=== PATIENT | female | born 1955 | race Caucasian/White ===

== ENCOUNTER 2020-09-14 08:39 | Outpatient (CLI) | payer MEDICARE, SELFPAY ==
--- NOTE | 2020-09-14 08:49 | MM_ITS ---
WS: [id number] Exam: [id number] Date/Time of Exam: 09/14/2020 8:50 AM Reason For Exam: SCREENING VIEWS: MLO and CC views both breasts. Comparison made with prior exam of 05/27/2016. Findings: There was no sign of mass, architectural distortion or suspicious calcification in either breast. Sc attered fibroglandular densities MM/[place] [id number] Impression: BI-RADS: 2-Benign FOLLOW-UP: 1 Year Follow-up This mammogram was also analyzed by the Computer Aided Detection System R2 Imag e Occupational Health Nurse Supervisor.
== END 2020-09-14 08:40 | disposition home or self-care (01) ==
PROVIDERS: PCP Electrodiagnostic Medicine; Visit Provider Electrodiagnostic Medicine
DX: Z12.31 Encounter for screening mammogram for malignant neoplasm of breast (principal)
CPT/HCPCS: 77067

== ENCOUNTER 2021-04-17 13:16 | Outpatient (CLI) | payer MEDICARE, SELFPAY ==
--- NOTE | 2021-04-17 13:27 | MM_ITS ---
WS: [id number] DIAGNOSTIC RIGHT DIGITAL MAMMOGRAM WITH CAD RIGHT breast ultrasound, limited HISTORY: RIGHT BREAST MASS COMPARISON: 09/14/2020, 06/07/2019, 05/13/2018 and 05/27/2016 Technique: CC, MLO and ML views. Spot compression views RIGHT MLO and cc. Breast composition: There are scattered areas of fibroglandular density. Palpable marker corresponds to a rounded nodule of 8 mm which has increased in density since the prior examination. The fatty hi lum is no longer apparent. This is a well circumscribed nodule and thought to be a lymph node on prio r studies. RIGHT breast ultrasound, limited. Palpable area corresponds to a lymph node that has been previously described at 10:00, 6 cm from the nipple. This lymph node has increased in size now measuring 9 x 6.9 mm. There is very slight displace ment of the normal central fatty hilum. There is asymmetric thickening of the cortex. There is also s ome mild central increased vascularity. MM/[place] [id number] IMPRESSION: BI-RADS: 4-Suspicious Finding-Biopsy Should Be Considered FOLLOW UP: Biopsy Recommended Recommend ultrasound-guided biopsy of the RIGHT breast mass at 10:00. This does appear to be a lymph node but has increased slightly in size and now there is asymmetry of the cortex and displacement of the fatty hilum. May be a reactive lymph node. Early neoplastic disease should be considered. Notified Haseeb Reed DO at 04/17/2021 3:32 PM. Discussed with Promise.
== END 2021-04-17 13:17 | disposition home or self-care (01) ==
LOC: RADSHAW 13:21
PROVIDERS: PCP Electrodiagnostic Medicine; Visit Provider Electrodiagnostic Medicine
DX: N63.11 Unspecified lump in the right breast, upper outer quadrant (principal)
CPT/HCPCS: 76642; 77065

== ENCOUNTER 2021-05-01 13:10 | Outpatient (CLI) | payer MEDICARE, SELFPAY ==
--- NOTE | 2021-05-01 13:14 | US_ITS ---
WS: [id number] ULTRASOUND-GUIDED RIGHT BREAST BIOPSY HISTORY: R BREAST MASS @ 10:00 COMPARISON: 04/17/2021 and 05/13/2018 Procedure, risks and complications are explained to the patient. Medications are reviewed. Consent is obtained. The mass in the RIGHT breast is localized with ultrasound. Skin is cleansed with ChloraPrep and anest hetized with 1% buffered lidocaine. Small dermatome is made. Under sterile conditions mass is biopsie d with a 14-gauge Achieve needle. Multiple core biopsies are performed. Material placed in formalin a nd sent to pathology for review. No complications encountered. Breast tissue marker ([employer] ultrasound enhanced ribbon): None. Patient left the radiology suite with no complications. Patient is instructed to [place] [facility] [place] [facility] with any concerns. US/[place] [id number] IMPRESSION: 1. Uncomplicated core needle biopsy RIGHT breast mass which by imaging is prob ably a lymph node. PATHOLOGY: Benign lymphoid tissue. No malignancy. RECOMMENDATION: Return to annual screening mammography.
[2021-05-06 05:49] LABS: Miscellaneous Test See Scanned Lab Rpt
== END 2021-05-01 13:11 | disposition home or self-care (01) ==
PROVIDERS: PCP Electrodiagnostic Medicine; Visit Provider Electrodiagnostic Medicine
DX: R92.8 Other abnormal and inconclusive findings on diagnostic imaging of breast (principal); N63.11 Unspecified lump in the right breast, upper outer quadrant
CPT/HCPCS: 19083; 88271; 88275; 88305

== ENCOUNTER 2021-05-21 08:05 | Outpatient (CLI) | payer MEDICARE, SELFPAY ==
--- NOTE | 2021-05-21 08:14 | XR_ITS ---
WS: [id number] XR lumbar spine 2-3V* [id number] REASON FOR EXAM: CHRONIC LUMBAR BACK PAIN FINDINGS: No significant vertebral body compression deformity. Mild narrowing of the intervertebral disc spaces L3-S1. No spondylolisthesis or spondylolysis identified. Mild degenerative changes in the facet joints L3-S1 . XR/XR lumbar spine 2-3V* [id number] IMPRESSION: Changes of degenerative spondylosis as above.
== END 2021-05-21 08:06 | disposition home or self-care (01) ==
PROVIDERS: PCP Electrodiagnostic Medicine; Visit Provider Electrodiagnostic Medicine
DX: M54.5 Low back pain (principal)
CPT/HCPCS: 72100

== ENCOUNTER 2022-03-18 18:23 | Inpatient (IN) | payer MEDICARE, SELFPAY ==
--- NOTE | 2022-03-18 18:26 | ECG_ITS ---
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 Measurements Intervals [place] Rate: 88 P: 65 ID: [id number] QRS: 46 QRSD: 131 T: 4 QT: 390 QTc: 473 Interpretive Statements SINUS RHYTHM RIGHT BUNDLE BRANCH BLOCK [120+ ms QRS DURATION, UPRIGHT V1, 40+ ms S IN I/aVL/V4/V5/V6] MODERATE T-WAVE ABNORMALITY, CONSIDER LATERAL ISCHEMIA [-0.1+ mV T-WAVE IN I/aVL/V5/V6] Compared to ECG 09/16/2018 07:35:04 T-wave abnormality now present Possible ischemia now present Short ID interval no longer present Electronically Signed On 03-19-2022 22:03:27 CDT by Cassidy Chambers M.D. [email or web address]
[2022-03-18 18:27] VITALS: BP 128/72; PULSE 110; RESP 24; TEMP 37; O2SAT 97; BMI 23.6
[2022-03-18] MEDS: ondansetron 2 mg/ML SDV 2 mL 4 MG IVP ×2 (18:47→22:23)
[2022-03-18] MEDS: sodium chloride 0.9% 1,000 ML 999 ML IV (18:48)
--- NOTE | 2022-03-18 18:51 | ED_ITS ---
HPI - Nausea/Vomiting/Diarrhea General: Chief complaint: Nausea/Vomiting/Diarrhea Stated complaint: n/v/passing out Time Seen by Provider: 03/18/22 18:32 Source: patient Mode of arrival: ambulatory Limitations: no limitations History of Present Illness: 66-year-old female who states that she been having some GI distress throughout the day states she gets this at this time so roughly 2 to 3 hours ago she drank some activated charcoal states that over the last hour she had severe nausea and vomiting. She has had multiple episodes along with some diarrhea and has had a couple episodes of syncope while vomiting. She states she has not been able to tolerate any p.o. she denies any abdominal pain denies any fever denies any worsening improving factors. She denies any chest pain. Associated nausea: Yes Associated symtoms: Reports nausea and syncope; Denies dysuria or headache(s) Review of Systems Const: Denies: fever(s), chills, body aches or change in appetite Eyes: Denies: blurry vision or eye discomfort ENMT: Denies: throat pain or dental pain Card: Reports: syncope Resp: Denies: dyspnea GI: Reports: nausea and vomiting : Denies: dysuria Musc: Denies: neck pain or back pain Skin/Breast: Denies: rash Neuro: Denies: headache(s) Psych: Denies: depression Manuel/Lymph: Denies: easy bruising All/Imm: Denies: urticaria PFSH ED PFSH: Social History Substance/Drug Use: never Physical Exam Const: COMMON NORMALS: no acute distress, patient oriented x3 and healthy appearing HENMT: COMMON NORMALS: normocephalic and atraumatic HEAD & SCALP: normocephalic and atraumatic Eye: COMMON NORMALS: Equal, round and reactive pupils present and EOMs intact bilaterally PUPIL: Yes Equal, round and reactive pupils present Neck/C-Spine: COMMON NORMALS: full ROM and supple Chest: COMMONS NORMALS: normal inspection of the chest and normal palpation of entire chest wall Resp: COMMON NORMALS: normal respiratory effort, No retractions, No use of accessory muscles and clear to auscultation bilaterally AUSCULTATION: clear to auscultation bilaterally Cardio: COMMON NORMALS: regular rate, regular rhythm and No murmurs present (Cardio) RATE: regular rate RHYTHM: regular rhythm GI: COMMON NORMALS: Normal to inspection, nondistended, normoactive bowel sounds present, Soft to palpation, non-tender and no masses PALPATION: Yes Soft to palpation Extremity: COMMON NORMALS: normal to inspection and full ROM Neuro: COMMON NORMALS: patient oriented x3, moves all extremities and no focal motor deficits Psych: COMMON NORMALS: mental status grossly normal, Normal thought process present and cooperative THOUGHT PROCESS: Normal thought process present Skin: COMMON NORMALS: no rashes or lesions noted and no wounds GENERAL SKIN EXAM: no rashes or lesions noted Course Vital Signs: Vital signs: Vital Signs Temperature 98.6 F 03/18/22 18:27 Pulse Rate 110 H 03/18/22 18:27 Respiratory Rate 18 03/18/22 22:23 Blood Pressure 128/72 03/18/22 18:27 Pulse Oximetry 99 03/18/22 22:23 MDM - Nausea/Vomiting/Diarrhea Medical Decision Making Patient presents here with nausea vomiting has had intractable vomiting here. Given multiple dose of Zofran she is still felt unwell did a CT of her abdomen pelvis it did show a right lower and middle lobe pneumonia discussed at length with patient she states she feels like she cannot tolerate oral antibiotics will admit for observation for her vomiting along with her pneumonia she has been stable while in the ER. Lab Data : 03/18/22 18:50 03/18/22 18:50 Radiology Impressions Chest X-Ray 03/18/22 22:11 IMPRESSION: Stable COPD . Abdomen/Pelvis CT 03/18/22 22:14 IMPRESSION: 1. Mild right middle lobe and right lower lobe pneumonia. 2. No acute abdominal findings. Laboratory Results WBC 9.0 10^3/uL (4.0-10.0) 03/18/22 18:50 RBC 4.69 10^6/uL (4.1-5.3) 03/18/22 18:50 Hgb 14.6 g/dL (11.5-15.3) 03/18/22 18:50 Hct 42.3 % (37.0-47.0) 03/18/22 18:50 MCV 90.2 fl (81-99) 03/18/22 18:50 MCH 31.1 pg (28.0-34.0) 03/18/22 18:50 MCHC 34.5 g/dL (30.0-36.0) 03/18/22 18:50 RDW 12.5 % (12.1-15.1) 03/18/22 18:50 Plt Count 290 10^3/cmm (130-400) 03/18/22 18:50 MPV 10.2 fL (7.4-10.4) 03/18/22 18:50 Neut % (Auto) 81.9 % 03/18/22 18:50 Lymph % (Auto) 13.3 % 03/18/22 18:50 [place] % (Auto) 3.7 % 03/18/22 18:50 Eos % (Auto) 0.6 % 03/18/22 18:50 Baso % (Auto) 0.3 % 03/18/22 18:50 Neut # (Auto) 7.33 10^3/uL (1.8-7.7) 03/18/22 18:50 Lymph # (Auto) 1.2 10^3/uL (0.8-4.8) 03/18/22 18:50 [place] # (Auto) 0.3 10^3/uL (0.2-0.9) 03/18/22 18:50 Eos # (Auto) 0.1 10^3/uL (0.0-0.8) 03/18/22 18:50 Baso # (Auto) 0.0 10^3/uL (0.0-0.1) 03/18/22 18:50 Nucleated RBC % (auto) 0 % 03/18/22 18:50 Nucleated RBCs # 0.0 /100WBC 03/18/22 18:50 Sodium 136 mmol/L (136-145) 03/18/22 18:50 Potassium 3.7 mmol/L (3.5-5.1) 03/18/22 18:50 Chloride 98 mmol/L (98-107) 03/18/22 18:50 Carbon Dioxide 20 mmol/L (22-29) L 03/18/22 18:50 Anion Gap 21.7 (5-19) H 03/18/22 18:50 BUN 13 mg/dL (8-23) 03/18/22 18:50 Creatinine 0.6 mg/dL (0.5-0.9) 03/18/22 18:50 GFR Calculation 100.0 mL/min (90-130) 03/18/22 18:50 Glucose 161 mg/dL (65-115) H 03/18/22 18:50 Calculated Osmolality 286 mOsm/kg (285-295) 03/18/22 18:50 Calcium 9.7 mg/dL (8.5-10.5) 03/18/22 18:50 Total Bilirubin 0.5 mg/dL (0.15-1.2) 03/18/22 18:50 AST 19 U/L (0-32) 03/18/22 18:50 ALT 22 U/L (0-33) 03/18/22 18:50 Alkaline Phosphatase 112 IU/L (35-105) H 03/18/22 18:50 Troponin T Gen 5 ng/L 7 ng/L (0-10) 03/18/22 22:39 Troponin T Baseline 7 ng/L (0-10) 03/18/22 18:50 Total Protein 7.8 g/dL (6.6-8.7) 03/18/22 18:50 Albumin 4.5 g/dL (3.5-5.2) 03/18/22 18:50 Globulin 3.3 g/dL (1.3-4.6) 03/18/22 18:50 Lipase 15 U/L (13-60) 03/18/22 18:50 Urine Color Colorless (Yellow) 03/18/22 21:08 Urine Appearance Clear (CLEAR) 03/18/22 21:08 Urine pH 7 (5-7) 03/18/22 21:08 Ur Specific [place] 1.010 (1.005-1.030) 03/18/22 21:08 Urine Protein Neg (Negative) 03/18/22 21:08 Urine Glucose (UA) Norm (Normal) 03/18/22 21:08 Urine Ketones 1+ (Negative) H 03/18/22 21:08 Urine Blood Neg (Negative) 03/18/22 21:08 Urine Nitrate Negative (Negative) 03/18/22 21:08 Urine Bilirubin Neg (Negative) 03/18/22 21:08 Urine Urobilinogen Norm mg/dL (Negative) 03/18/22 21:08 Ur Leukocyte Esterase Negative (Negative) 03/18/22 21:08 EKG Data EKG 1: I personally reviewed and interpreted this EKG as follows: EKG interpretation date: 03/18/22 EKG interpretation time: 18:56 Interpretation: nsr hr [address] or t wave abnormalities qrs 131 qtc 436 rbbb Discharge Plan Discharge Prescriptions: No Action zinc acetate 25 mg (zinc) Capsule 25 mg PO DAILY 0RF Vitamin C 100 mg Tablet 100 mg PO DAILY 0RF Vitamin B-100 Complex Tablet 1 tab PO DAILY 0RF fluticasone propionate 50 mcg/actuation [place],Suspension 1 spray INTRANASAL DAILY PRN (Reason: Allergy Symptoms) 0RF Rx Instructions: administer into each nostril Vitamin D3 10 mcg (400 unit) Tablet 10 mcg PO DAILY 0RF diazepam 5 mg Tablet 5 mg PO DAILY PRN (Reason: Sleep) 0RF Probiotic 15 billion cell Capsule 1 cap PO DAILY 0RF Referrals: Haseeb Reed DO [Primary Care Provider] - Coding Level of Care Code ED Back Tender Insulation Board for Chg Fwd Exam Comprehensive
[2022-03-18 18:55] LABS: Basophils % 0.3 %; Eosinophils # 0.1 10^3/uL (0.0-0.8); Eosinophils % 0.6 %; Hematocrit 42.3 % (37.0-47.0); Hemoglobin 14.6 g/dL (11.5-15.3); Lymphocytes # 1.2 10^3/uL (0.8-4.8); Lymphocytes % 13.3 %; Mean Corpuscular HGB Conc 34.5 g/dL (30.0-36.0); Mean Corpuscular Hemoglobin 31.1 pg (28.0-34.0); Mean Corpuscular Volume 90.2 fl (81-99); Mean Platelet Volume 10.2 fL (7.4-10.4); Monocytes # 0.3 10^3/uL (0.2-0.9); Monocytes % 3.7 %; Neutrophils # 7.33 10^3/uL (1.8-7.7); Neutrophils % 81.9 %; Nucleated Red Blood Cells % 0 %; Platelet Count 290 10^3/cmm (130-400); Red Blood Count 4.69 10^6/uL (4.1-5.3); Red Cell Distribution Width 12.5 % (12.1-15.1)
--- NOTE | 2022-03-18 18:59 | PC.NURSE ---
PT PLACED ON CONTINUOUS SPO2, NIBP, AND CM.
--- NOTE | 2022-03-18 19:03 | PC.NURSE ---
REPORT GIVEN TO [facility] ASSUMED CARE.
[2022-03-18 19:13] LABS: Alanine Aminotransferase 22 U/L (0-33); Albumin Level 4.5 g/dL (3.5-5.2); Alkaline Phosphatase 112 IU/L (35-105); Anion Gap 21.7 (5-19); Aspartate Amino Transferase 19 U/L (0-32); Blood Urea Nitrogen 13 mg/dL (8-23); Calcium 9.7 mg/dL (8.5-10.5); Carbon Dioxide 20 mmol/L (22-29); Chloride 98 mmol/L (98-107); Globulin 3.3 g/dL (1.3-4.6); Glucose 161 mg/dL (65-115); Lipase 15 U/L (13-60); Osmolality Calculated 286 mOsm/kg (285-295); Potassium 3.7 mmol/L (3.5-5.1); Sodium 136 mmol/L (136-145); Total Bilirubin 0.5 mg/dL (0.15-1.2); Total Protein 7.8 g/dL (6.6-8.7)
[2022-03-18 21:14] LABS: Add Urine Microscopic? NO; Charge for UA Resulting for Rev
[2022-03-18 21:18] LABS: Bilirubin Urine Neg (Negative); Blood Urine Neg (Negative); Glucose Urine UA Norm (Normal); Ketones Urine 1+ (Negative); Leukocyte Esterase Urine Negative (Negative); Nitrate Urine Negative (Negative); Protein Urine Neg (Negative); Urine Appearance Clear (CLEAR); Urine Color Colorless (Yellow); Urobilinogen Urine Norm (Negative); pH Urine 7 (5-7)
--- NOTE | 2022-03-18 22:11 | XRR_ITS ---
PROCEDURE INFORMATION: Exam: XR Chest Exam date and time: 03/18/2022 10:42 PM Age: 66 years old Clinical indication: Chest wall pain; Additional info: Abd pain TECHNIQUE: Imaging protocol: XR of the chest. Views: 1 view. COMPARISON: CR Chest 1 [place] [id number] 09/16/2018 1:58 AM FINDINGS: Lungs: Stable COPD . Pleural spaces: Unremarkable. No pleural effusion. No pneumothorax. Heart/Mediastinum: Unremarkable. No cardiomegaly. Bones/joints: Unremarkable. XR/XR chest 1V portable [id number] IMPRESSION: Stable COPD .
--- NOTE | 2022-03-18 22:14 | CTR_ITS ---
PROCEDURE INFORMATION: Exam: CT Abdomen And Pelvis Without Contrast Exam date and time: 03/18/2022 10:27 PM Age: 66 years old Clinical indication: Nausea and vomiting; Prior surgery; Surgery type: Appy; Patient HX: Onset of n/v/d starting today. ; Additional info: Abd pain TECHNIQUE: Imaging protocol: Computed tomography of the abdomen and pelvis without contrast. Radiation optimization: All CT scans at this facility use at least one of these dose optimization techniques: automated exposure control; mA and/or kV adjustment per patient size (includes targeted exams where dose is matched to clinical indication); or iterative reconstruction. COMPARISON: CT abdomen pelvis w con* [id number] 09/16/2018 2:41 AM RADIATION DOSE METRICS: Total DLP (mGy-cm): 1431.31 FINDINGS: Lungs: Mild right middle lobe and right lower lobe pneumonia. Liver: Normal. No mass. Gallbladder and bile ducts: Normal. No calcified stones. No ductal dilation. Pancreas: Normal. No ductal dilation. Spleen: Normal. No splenomegaly. Adrenal glands: Normal. No mass. Kidneys and ureters: Normal. No hydronephrosis. Stomach and bowel: Unremarkable. No obstruction. No mucosal thickening. Appendix: No evidence of appendicitis. Intraperitoneal space: Unremarkable. No free air. No significant fluid collection. Vasculature: One or more calcified pelvic phleboliths. Lymph nodes: Unremarkable. No enlarged lymph nodes. Urinary bladder: Unremarkable as visualized. Reproductive: Stable hysterectomy. Bones/joints: Unremarkable. No acute fracture. Soft tissues: Unremarkable. CT/CT abdomen pelvis con [id number] IMPRESSION: 1. Mild right middle lobe and right lower lobe pneumonia. 2. No acute abdominal findings.
[2022-03-18 22:23] VITALS: RESP 18; O2SAT 99
[2022-03-18] MEDS: morphine 4 mg/mL SDV 1 mL IVP (22:23)
[2022-03-18 23:11] LABS: Troponin(5th) Baseline 7 ng/L (0-10)
[2022-03-18 23:13] LABS: Troponin T (5th) Once 7 ng/L (0-10)
--- NOTE | 2022-03-18 23:42 | PM.HP ---
Providers/Chief Complaint Primary Care Provider: Haseeb Reed DO Chief Complaint: n/v/passing out History of Present Illness The patient is a [age]-year-old female who presents with chief complaint of nausea and diarrhea.? She indicates that she initially started feeling unwell possibly 40 hours prior to hospitalization.? She has had accompanying rigors, vomiting, back pain, diarrhea.? She denies fever, cough, wheeze, abdominal pain, chest pain, dyspnea.? She denies any sick contacts and she denies any other close contacts experience and the same symptoms.? She indicates that she has not used antibiotics with the last 6 months.? She denies melena and hematochezia.? She states that she took activated charcoal at home without improvement in her symptoms.? He denies diplopia, blurry vision, dysphasia, dysphagia, paresthesia/anesthesia/myasthenia of any part of her body.? She presents for further evaluation Review of Systems General: Reports: 10 or more systems reviewed and unremarkable except in HPI and below Medications/Allergies Home Medications Medication Instructions Recorded Confirmed Last Taken Type Lactobacillus acidophilus and 1 cap PO DAILY 03/18/22 03/18/22 Unknown History rhamnosus 15 billion cell capsule (Probiotic) ascorbic acid (vitamin C) 100 mg 100 mg PO DAILY 03/18/22 03/18/22 Unknown History tablet (Vitamin C) cholecalciferol (vitamin D3) 10 10 mcg PO DAILY 03/18/22 03/18/22 Unknown History mcg (400 unit) tablet (Vitamin D3) diazepam 5 mg tablet 5 mg PO DAILY PRN 03/18/22 03/18/22 03/14/22 History fluticasone propionate 50 1 spray INTRANASAL DAILY PRN 03/18/22 03/18/22 Unknown History mcg/actuation nasal spray,suspension vitamin B complex 1 tab PO DAILY 03/18/22 03/18/22 Unknown History zinc acetate 25 mg (zinc) capsule 25 mg PO DAILY 03/18/22 03/18/22 Unknown History Allergies Allergy/AdvReac Type Severity Reaction Status Date / Time No Known Allergies Allergy Verified 03/18/22 21:14 PFSH Acute PFSH: Social History Substance/Drug Use: never Vitals/I&O/Wt Last Vital Signs Temp 98.6 F 03/18/22 18:27 Pulse 110 H 03/18/22 18:27 Resp 18 03/18/22 22:23 BP 128/72 03/18/22 18:27 Pulse Ox 99 03/18/22 22:23 Weight last 48 hrs Weight 72.575 kg Physical Exam Narrative: General: -Alert -No acute distress -No dyspnea -No tachypnea Head: -Atraumatic -Normocephalic Eyes: -Pupils equally round and reactive to light and accommodation -Extraocular muscles intact Neurological: -Cranial nerves II-XII intact Neck: -No jugular venous distention -No thyromegaly -No cervical lymphadenopathy Heart: -Regular rate -Regular rhythm -No murmurs -No gallops -No rubs Lungs: -No wheeze -No rhonchi -No rales ? Abdomen: -Normal bowel sounds in all four quadrants -No rebound -No guarding -No tenderness Extremities: -2/4 pulse in all four extremities -No clubbing -No cyanosis -No edema -No calf tenderness present bilaterally -Negative Nallely?s sign bilaterally Musculoskeletal: -5/5 bilateral upper extremity strength -5/5 bilateral lower extremity strength -Sensorium of bilateral upper extremities are equal and intact -Sensorium of bilateral lower extremities are equal and intact ? Additional Details / Additional Findings / Exceptions / Miscellaneous: Data : 03/18/22 18:50 03/18/22 18:50 A&P Assessment and plan (1) Nausea: Status: Acute Plan nausea with symptoms of gastroenteritis. CT of the abdomen and pelvis unremarkable for acute process.Uncertain etiology at this time. I will low index of suspicion for a neurological event being the inciting reason. This may possibly second be secondary to her pneumonia. Care and antiemetics. IV normal saline 100 ML's per hour. if symptoms persist, we may check stool C. difficile, stool WBC, stool culture, and stool ova and parasites and perhaps change her antibiotics to once that may cover gastrointestinal avelino, i.e. Cipro and Flagyl pneumonia. Azithromycin 500 Mill grams IV daily plus Rocephin 1 g IV daily plus IV normal saline at 100 ML's per hour Seasonal allergies Anxiety COPD, per radiography DVT Proflex is. Lovenox 40 Mill grams subcu tensely daily Attestations Medical Necessity Statement*: the patient's anticipated length of stay is less than 40 hours for treatment of her pneumonia as well as her nausea Coding Level of Care Code Acute Supervisor [employer]aning [employer] for [facility] Fwd Diagnoses Nausea R11.0
[2022-03-18] MEDS: cefTRIAXone 1,000 MG in sodium chloride 0.9% (plus) 50 ML 100 MG IV (23:45)
[2022-03-18] MEDS: azithromycin 500 MG in sodium chloride 0.9% 250 ML 250 MG IV (23:48)
[2022-03-19] VITALS (9 sets, daily range): BP systolic 111–151; BP diastolic 65–78; PULSE 65–105; RESP 16–22; TEMP 36.3–38; O2SAT 92–98
--- NOTE | 2022-03-19 00:14 | ECG_ITS ---
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 Measurements Intervals [place] Rate: 100 P: 74 AL: 172 QRS: 33 QRSD: 139 T: -50 QT: 343 QTc: 443 Interpretive Statements SINUS TACHYCARDIA RIGHT BUNDLE BRANCH BLOCK [120+ ms QRS DURATION, UPRIGHT V1, 40+ ms S IN I/aVL/V4/V5/V6] MODERATE T-WAVE ABNORMALITY, CONSIDER LATERAL ISCHEMIA [-0.1+ mV T-WAVE IN I/aVL/V5/V6] MODERATE T-WAVE ABNORMALITY, CONSIDER INFERIOR ISCHEMIA [-0.1+ mV T-WAVE IN II/aVF] Compared to ECG 03/18/2022 18:56:34 Sinus rhythm no longer present T-wave abnormality still present Possible ischemia still present Electronically Signed On 03-19-2022 22:09:58 CDT by Cassidy Chambers M.D. [id number]
[2022-03-19] MEDS: enoxaparin 40 mg/0.4 mL Syringe SUBCUT (01:24)
[2022-03-19] MEDS: sodium chloride 0.9% 1,000 ML 100 ML IV ×2 (01:24→11:08)
[2022-03-19 03:07] LABS: Troponin 5 6HR 6.93 ng/L (0-10)
[2022-03-19 03:18] LABS: Troponin 5 6HR Delta -0.07 ng/L (0-12)
--- NOTE | 2022-03-19 04:14 | ECG_ITS ---
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 Measurements Intervals [place] Rate: 88 P: 75 NV: 152 QRS: 31 QRSD: 138 T: -34 QT: 349 QTc: 423 Interpretive Statements SINUS RHYTHM WITH OCCASIONAL SUPRAVENTRICULAR PREMATURE COMPLEXES RIGHT BUNDLE BRANCH BLOCK [120+ ms QRS DURATION, UPRIGHT V1, 40+ ms S IN I/aVL/V4/V5/V6] MODERATE T-WAVE ABNORMALITY, CONSIDER LATERAL ISCHEMIA [-0.1+ mV T-WAVE IN I/aVL/V5/V6] MODERATE T-WAVE ABNORMALITY, CONSIDER INFERIOR ISCHEMIA [-0.1+ mV T-WAVE IN II/aVF] Compared to ECG 03/19/2022 02:25:28 Sinus tachycardia no longer present T-wave abnormality still present Possible ischemia still present Electronically Signed On 03-19-2022 22:09:48 CDT by Cassidy Chambers M.D. [id number]
--- NOTE | 2022-03-19 08:46 | PM.PN ---
Subjective Subjective: Patient fevered overnight to 100.4. Patient reports persistent nausea. She reports the only thing she has been able to eat since being at the hospital is a Jell-O. She endorses low back pain. Reports cough. Reports fever improved. Denies chills. Denies abdominal pain. Denies further episodes of diarrhea or emesis since admission. Denies chest pain. Medications: Reviewed: Yes Vitals/I&O/Wt Last Vital Signs Temp 99.0 F 03/19/22 08:00 Pulse 88 03/19/22 08:00 Resp 18 03/19/22 08:00 BP 115/65 03/19/22 08:00 Pulse Ox 95 03/19/22 08:00 03/18/22 03/19/22 03/19/22 22:59 06:59 14:59 Intake Total 300 / 300 Balance 300 / 300 Weight last 48 hrs Weight 72.575 kg Physical Exam Narrative: General: Patient is awake. Appears fatigued. Head: Normocephalic. Atraumatic. EOM intact. Dry mucous membranes. Neck: No JVD. Cardiovascular: RRR. No gallops. No murmurs. No peripheral edema. Lungs: Faint rhonchi in left lung koenig. Adequate air movement. No use of accessory muscles, no crackles or wheezes. Skin: No jaundice. No rashes. Abdomen: Hypoactive bowel sounds, abdomen soft and nontender. Genito Urinary: Genital exam not performed since complaints not related. Rectal: Rectal exam not performed since no symptoms indicated blood loss. Extremeties: No cyanosis or clubbing. Musculoskeletal: Normal range of motion, no swollen or erythematous joints. Neurological: Moves all 4 extremities. No myoclonus. Data : 03/18/22 18:50 03/18/22 18:50 Micro: Microbiology 03/18/22 23:40 Blood Culture - Preliminary Blood SPECIMEN COLLECTED 03/18/22 23:20 Blood Culture - Preliminary Blood SPECIMEN COLLECTED A&P Assessment and plan (1) Gastroenteritis: -Patient with persistent nausea and very poor PO intake -CT abdomen negative for colitis, presentation c/w gastroenteritis -Continue IV fluids -Continue IV antiemetic -Continue supportive care -Continue clear liquid diet, advance as tolerated pending symptomatology Status: Acute (2) Pneumonia: -Community acquired pneumonia with cough -Continue ceftriaxone -Continue azithromycin Status: Acute (3) Metabolic acidemia: -Likely secondary to gastroenteritis -IV fluids as above Status: Acute (4) Allergic rhinitis: -Continue home Flonase Status: Acute (5) Anxiety: -Continue home diazepam as needed Status: Acute (6) COPD (chronic obstructive pulmonary disease): -Radiographic finding -Not in acute exacerbation Status: Acute Plan DVT ppx: Lovenox Attestations Medical Necessity Statement*: Patient unable to tolerate PO intake, therefore unsafe to discharge, her hospitalization now expected to cross 2 midnights. 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
[2022-03-19] MEDS: cefTRIAXone 1,000 MG in sodium chloride 0.9% (plus) 50 ML 100 MG IV (09:46)
--- NOTE | 2022-03-19 10:15 | PC.CHAP ---
Pastoral Care Encounter/Spiritual Assessment Type of Contact [] Declined tube knitter visit [] Patient/Family/Request visit [] Outpatient visit [] Follow-up visit [] Physician referral [] Code/Alert []x Routine visit [] Staff referral [] Actively dying [] Patient sleeping [] Family support [] [] Out of room [] Palliative care [] [] Receiving care in room [] Pre-surgical visit [] Trauma [] Long length of stay [] ICU visit [] Other: Relational/Emotional Strength [x] Patient feels connected with others/family/visitors/staff [] Distress [] Loneliness/isolation [] Abandonment Spirituality of Patient [x] Person of Emelia [x] Attends Sabianist of their Emelia [x] Believes in Prayer [] Reads Bible or Uatsdin materials [] There are Spiritual issues to be addressed Director Paid Media Interventions [x] Prayer [x] Active listening [x] Non-anxious presence [] Spiritual/emotional support [] Crisis/trauma care [] Spiritual counseling [] Bereavement support [] Provided bereavement packet [] Provided Bible/devotional materials [] Provided toy/stuffed animal, coloring book to patient or family member [] Provided Communion [] Anointing/[place] [] Salvation [x] Completed spiritual assessment [] Other: Impact on Illness or Injury [] Angry [] Fearful [] Anxious [] Often cries [] Exhaustion [] Unable to work [] Unable to attend mormon [] Unable to walk/stand [] Unable to read [] Unable to drive [] Unable to eat/drink [] Unable to sleep [] Unable to be with family [] Patient intubated [] Other: Summary Time spent with patient 10 min
[2022-03-19] MEDS: acetaminophen 325 mg Tablet 650 MG PO (11:17)
[2022-03-19] MEDS: ondansetron 2 mg/ML SDV 2 mL 4 MG IVP (19:30)
[2022-03-20] VITALS: BP 119/70; PULSE 90; RESP 18; TEMP 37.4; O2SAT 93
[2022-03-20] MEDS: sodium chloride 0.9% 1,000 ML 100 ML IV ×2 (00:21→06:46)
[2022-03-20] MEDS: azithromycin 500 MG in sodium chloride 0.9% 250 ML 250 MG IV (00:36)
[2022-03-20] MEDS: enoxaparin 40 mg/0.4 mL Syringe SUBCUT (00:36)
[2022-03-20 04:00] VITALS: BP 117/68; PULSE 86; RESP 16; TEMP 37.2; O2SAT 92
[2022-03-20 04:59] LABS: Basophils % 0.4 %; Eosinophils % 0.3 %; Hematocrit 33.2 % (37.0-47.0); Hemoglobin 10.8 g/dL (11.5-15.3); Lymphocytes # 0.9 10^3/uL (0.8-4.8); Lymphocytes % 11.3 %; Mean Corpuscular HGB Conc 32.5 g/dL (30.0-36.0); Mean Corpuscular Hemoglobin 31.4 pg (28.0-34.0); Mean Corpuscular Volume 96.5 fl (81-99); Mean Platelet Volume 10.6 fL (7.4-10.4); Monocytes # 0.4 10^3/uL (0.2-0.9); Monocytes % 4.6 %; Neutrophils # 6.64 10^3/uL (1.8-7.7); Neutrophils % 83.3 %; Nucleated Red Blood Cells % 0 %; Platelet Count 167 10^3/cmm (130-400); Red Blood Count 3.44 10^6/uL (4.1-5.3); Red Cell Distribution Width 13.1 % (12.1-15.1)
[2022-03-20 05:16] LABS: Albumin Level 3.2 g/dL (3.5-5.2); Anion Gap 13.3 (5-19); Blood Urea Nitrogen 8 mg/dL (8-23); Calcium 8.3 mg/dL (8.5-10.5); Carbon Dioxide 23 mmol/L (22-29); Chloride 106 mmol/L (98-107); Glucose 111 mg/dL (65-115); Phosphorus 1.9 mg/dL (2.5-4.5); Potassium 3.3 mmol/L (3.5-5.1); Sodium 139 mmol/L (136-145)
[2022-03-20 08:00] VITALS: BP 130/75; PULSE 92; RESP 17; TEMP 37.3; O2SAT 93
[2022-03-20] MEDS: potassium chloride ER 20 mEq Tablet PO (09:17)
[2022-03-20] MEDS: cefTRIAXone 1,000 MG in sodium chloride 0.9% (plus) 50 ML 100 MG IV (09:18)
--- NOTE | 2022-03-20 09:51 | P.PN_ITS ---
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
--- NOTE | 2022-03-20 10:57 | PC.CHAP ---
Pastoral Care Encounter/Spiritual Assessment Type of Contact [] Declined probation agent visit [] Patient/Family/Request visit [] Outpatient visit [] Follow-up visit [] Physician referral [] Code/Alert [x] Routine visit [] Staff referral [] Actively dying [] Patient sleeping [] Family support [] [] Out of room [] Palliative care [] [x] Receiving care in room [] Pre-surgical visit [] Trauma [] Long length of stay [] ICU visit [] Other: Relational/Emotional Strength [x] Patient feels connected with others/family/visitors/staff [] Distress [] Loneliness/isolation [] Abandonment Spirituality of Patient [x] Person of Emelia [] Attends Faith of their Emelia [x] Believes in Prayer [] Reads Bible or Presybeterian materials [] There are Spiritual issues to be addressed Loan Servicing Officer Interventions [x] Prayer [x] Active listening [x] Non-anxious presence [x] Spiritual/emotional support [] Crisis/trauma care [x] Spiritual counseling [] Bereavement support [] Provided bereavement packet [] Provided Bible/devotional materials [] Provided toy/stuffed animal, coloring book to patient or family member [] Provided Communion [] Anointing/[place] [] Salvation [x] Completed spiritual assessment [] Other: Impact on Illness or Injury [] Angry [] Fearful [] Anxious [] Often cries [] Exhaustion [] Unable to work [] Unable to attend zoroastrianism [] Unable to walk/stand [] Unable to read [] Unable to drive [] Unable to eat/drink [] Unable to sleep [] Unable to be with family [] Patient intubated [] Other: Summary feeling better is going home has a good attitude Time spent with patient 10 mins
[2022-03-20 12:00] VITALS: BP 129/71; PULSE 83; RESP 16; TEMP 37.2; O2SAT 96
--- NOTE | 2022-03-20 12:57 | PM.DCS ---
Discharge Providers Date of Admission: 03/19/22 12:01 Date of Discharge: March 20, 2022 Attending Provider at Admission: Genevieve Giang DO Attending Provider at Discharge: Wayne Morris MD Primary Care Provider: Haseeb Reed DO Diagnoses at Discharge Discharge Diagnosis (1) Gastroenteritis: Status: Acute (2) Pneumonia: Status: Acute (3) Metabolic acidemia: Status: Acute (4) Allergic rhinitis: Status: Acute (5) Anxiety: Status: Acute (6) COPD (chronic obstructive pulmonary disease): Status: Acute Reason for Visit Reason for Visit: n/v/passing out Hospital Course Hospital Course Aliya Lobato is a 66-year-old female with past medical history significant for anxiety and allergic rhinitis who presented with nausea, emesis, and diarrhea, found to have community-acquired pneumonia and gastritis. She was treated with IV ceftriaxone, IV azithromycin, antiemetics, and IV fluids. Patient's symptoms improved and she was tolerating liquid diet on day of discharge. She was discharged on p.o. cefdinir, azithromycin, and Zofran as needed. She is follow-up with her primary care provider in 4 to 7 days. Physical Exam Narrative: General: Patient is awake and alert. Head: Normocephalic. Atraumatic. EOM intact. Neck: No JVD. Cardiovascular: RRR. No gallops. No murmurs. No peripheral edema. Lungs: Clear to auscultation, no use of accessory muscles, no crackles or wheezes. Skin: No jaundice. No rashes. Abdomen: Normal bowel sounds, abdomen soft and nontender. Genito Urinary: Genital exam not performed since complaints not related. Rectal: Rectal exam not performed since no symptoms indicated blood loss. Extremeties: No cyanosis or clubbing. Neurological: Moves all 4 extremities. No myoclonus. Discharge Data Studies Completed and Pending Completed Studies During Hospitalization Category Date Time Status CT abdomen pelvis wo con [id number] Urgent Cat Scan 03/18/22 22:14 Completed CXRP [XR chest 1V portable [id number]] Stat Exams 03/18/22 22:11 Completed Pending at discharge Category Date Time Status Blood Culture Stat Lab 03/18/22 23:40 Results Radiology Impressions Chest X-Ray 03/18/22 22:11 IMPRESSION: Stable COPD . Abdomen/Pelvis CT 03/18/22 22:14 IMPRESSION: 1. Mild right middle lobe and right lower lobe pneumonia. 2. No acute abdominal findings. Laboratory Results WBC 8.0 10^3/uL (4.0-10.0) 03/20/22 04:31 RBC 3.44 10^6/uL (4.1-5.3) L 03/20/22 04:31 Hgb 10.8 g/dL (11.5-15.3) L 03/20/22 04:31 Hct 33.2 % (37.0-47.0) L 03/20/22 04:31 MCV 96.5 fl (81-99) 03/20/22 04:31 MCH 31.4 pg (28.0-34.0) 03/20/22 04:31 MCHC 32.5 g/dL (30.0-36.0) 03/20/22 04:31 RDW 13.1 % (12.1-15.1) 03/20/22 04:31 Plt Count 167 10^3/cmm (130-400) 03/20/22 04:31 MPV 10.6 fL (7.4-10.4) H 03/20/22 04:31 Neut % (Auto) 83.3 % 03/20/22 04:31 Lymph % (Auto) 11.3 % 03/20/22 04:31 Johnson % (Auto) 4.6 % 03/20/22 04:31 Eos % (Auto) 0.3 % 03/20/22 04:31 Baso % (Auto) 0.4 % 03/20/22 04:31 Neut # (Auto) 6.64 10^3/uL (1.8-7.7) 03/20/22 04:31 Lymph # (Auto) 0.9 10^3/uL (0.8-4.8) 03/20/22 04:31 Johnson # (Auto) 0.4 10^3/uL (0.2-0.9) 03/20/22 04:31 Eos # (Auto) 0.0 10^3/uL (0.0-0.8) 03/20/22 04:31 Baso # (Auto) 0.0 10^3/uL (0.0-0.1) 03/20/22 04:31 Nucleated RBC % (auto) 0 % 03/20/22 04:31 Nucleated RBCs # 0.0 /100WBC 03/20/22 04:31 Sodium 139 mmol/L (136-145) 03/20/22 04:31 Potassium 3.3 mmol/L (3.5-5.1) L 03/20/22 04:31 Chloride 106 mmol/L (98-107) 03/20/22 04:31 Carbon Dioxide 23 mmol/L (22-29) 03/20/22 04:31 Anion Gap 13.3 (5-19) 03/20/22 04:31 BUN 8 mg/dL (8-23) 03/20/22 04:31 Creatinine 0.6 mg/dL (0.5-0.9) 03/20/22 04:31 GFR Calculation 100.0 mL/min (90-130) 03/20/22 04:31 Glucose 111 mg/dL (65-115) 03/20/22 04:31 Calculated Osmolality 286 mOsm/kg (285-295) 03/18/22 18:50 Calcium 8.3 mg/dL (8.5-10.5) L 03/20/22 04:31 Phosphorus 1.9 mg/dL (2.5-4.5) L 03/20/22 04:31 Total Bilirubin 0.5 mg/dL (0.15-1.2) 03/18/22 18:50 AST 19 U/L (0-32) 03/18/22 18:50 ALT 22 U/L (0-33) 03/18/22 18:50 Alkaline Phosphatase 112 IU/L (35-105) H 03/18/22 18:50 Troponin T Gen 5 ng/L 7 ng/L (0-10) 03/18/22 22:39 Troponin T Baseline 7 ng/L (0-10) 03/18/22 18:50 Troponin T Hi Sens 6Hr 6.93 ng/L (0-10) 03/19/22 02:29 Troponin T Hi Sens 6Hr Delta -0.07 ng/L (0-12) L 03/19/22 02:29 Total Protein 7.8 g/dL (6.6-8.7) 03/18/22 18:50 Albumin 3.2 g/dL (3.5-5.2) L 03/20/22 04:31 Globulin 3.3 g/dL (1.3-4.6) 03/18/22 18:50 Lipase 15 U/L (13-60) 03/18/22 18:50 Urine Color Colorless (Yellow) 03/18/22 21:08 Urine Appearance Clear (CLEAR) 03/18/22 21:08 Urine pH 7 (5-7) 03/18/22 21:08 Ur Specific [place] 1.010 (1.005-1.030) 03/18/22 21:08 Urine Protein Neg (Negative) 03/18/22 21:08 Urine Glucose (UA) Norm (Normal) 03/18/22 21:08 Urine Ketones 1+ (Negative) H 03/18/22 21:08 Urine Blood Neg (Negative) 03/18/22 21:08 Urine Nitrate Negative (Negative) 03/18/22 21:08 Urine Bilirubin Neg (Negative) 03/18/22 21:08 Urine Urobilinogen Norm mg/dL (Negative) 03/18/22 21:08 Ur Leukocyte Esterase Negative (Negative) 03/18/22 21:08 Vitals Last Vital Signs Temp 98.9 F 03/20/22 12:00 Pulse 83 03/20/22 12:00 Resp 16 03/20/22 12:00 BP 129/71 03/20/22 12:00 Pulse Ox 96 03/20/22 12:00 Discharge Plan Discharge Patient Disposition: Home Condition: Stable Prescriptions: New cefdinir 300 mg capsule 300 mg PO BID 6 Days Qty: 12 0RF azithromycin 250 mg tablet See Rx Instructions .ROUTE .COMPLEX Qty: 6 0RF Rx Instructions: For 250 mg dose pack: take 500 mg today (day 1), then 250 mg for 4 days (days 2-5) ondansetron 4 mg tablet,disintegrating 4 mg PO Q8H PRN (Reason: nausea and vomiting) 5 Days Qty: 20 0RF Continued zinc acetate 25 mg (zinc) Capsule 25 mg PO DAILY 0RF Vitamin C 100 mg Tablet 100 mg PO DAILY 0RF vitamin B complex Tablet 1 tab PO DAILY 0RF fluticasone propionate 50 mcg/actuation [place],Suspension 1 spray INTRANASAL DAILY PRN (Reason: Allergy Symptoms) 0RF Rx Instructions: administer into each nostril Vitamin D3 10 mcg (400 unit) Tablet 10 mcg PO DAILY 0RF diazepam 5 mg Tablet 5 mg PO DAILY PRN (Reason: Sleep) 0RF Probiotic 15 billion cell Capsule 1 cap PO DAILY 0RF Discharge Orders: Discharge Order (Routine); Ordered 03/20/22 Ordered By: Wayne Morris Referrals: Haseeb Reed DO [Primary Care Provider] - 03/26/22 8:30 am Discharge Diet: Advance as tolerated Discharge Activity: Increase activity as tolerated Patient Instructions: Azithromycin (By mouth), Ondansetron (By mouth), Cefdinir (By mouth) (Omnicef), Opioid Safety, Pneumonia Stoplight, Pneumonia - Viral Discharge Attestations Time Spent in Discharge Care*: greater than 30 min Quality Metrics Clinical Quality Measures [ No reported AMI, CVA or VTE this stay] Coding Level of Care Code Acute [facility] note Diagnoses Gastroenteritis K52.9 Pneumonia J18.9 Metabolic acidemia E87.2 Allergic rhinitis J30.9 Anxiety F41.9 COPD (chronic obstructive pulmonary disease) J44.9
--- NOTE | 2022-03-20 15:34 | PC.NURSE ---
Discussed discharge with patient and spouse. When over new medications and follow up appointments. Verbalized understanding.
[2022-03-20 16:17] VITALS: BP 129/71; PULSE 83; RESP 16; TEMP 37.2; O2SAT 96
== END 2022-03-20 15:30 | disposition home or self-care (01) | DRG 391 ==
LOC: ER 23:47 → MEDSURG 03-19 00:11
PROVIDERS: Admitting Provider Internal Medicine; Emergency Provider Emergency Medicine; PCP Electrodiagnostic Medicine; Visit Provider Internal Medicine
DX: K52.9 Noninfective gastroenteritis and colitis, unspecified (principal); J18.9 Pneumonia, unspecified organism; J44.0 Chronic obstructive pulmonary disease with (acute) lower respiratory infection; F41.9 Anxiety disorder, unspecified; J30.9 Allergic rhinitis, unspecified
CPT/HCPCS: 36415; 71045; 74176; 80053; 80069; 81003; 83690; 84484; 85025; 87040; 93005; 96365; 96367; 96372; 96375; 96376; 99285; G0378; J0456; J0696; J1650; J2270; J2405; J7030; J7050

== ENCOUNTER 2022-03-26 07:38 | Outpatient (CLI) | payer MEDICARE, SELFPAY ==
--- NOTE | 2022-03-26 | XR_ITS ---
WS: [id number] PROCEDURE: XR chest 2V* [id number] CLINICAL INFORMATION: PNEUMONIA COMPARISON: March 18, 2022 FINDINGS: Heart: Cardiomegaly. Lungs: Hyperinflation. Elevation RIGHT hemidiaphragm. Subsegmental atelectasis RIGHT lower lobe. Patc hy infiltrates in the RIGHT middle lobe. LEFT lung appears well aerated. Bones: Osteopenia XR/XR chest 2V* [id number] IMPRESSION: Subsegmental atelectasis with patchy infiltrates in the RIGHT middle lobe and R IGHT lower lobe. Volume loss RIGHT lower lobe. Findings compatible with residua l pneumonia. This is similar in appearance to the CT abdomen pelvis March 18 2
== END 2022-03-26 07:39 | disposition home or self-care (01) ==
LOC: RADOUTREAD 03-27 07:44
PROVIDERS: PCP Electrodiagnostic Medicine; Visit Provider Electrodiagnostic Medicine
DX: J18.9 Pneumonia, unspecified organism (principal)
CPT/HCPCS: 71046

== ENCOUNTER 2022-05-07 08:47 | Outpatient (CLI) | payer MEDICARE, SELFPAY ==
--- NOTE | 2022-05-07 08:52 | MM_ITS ---
WS: [id number] BILATERAL SCREENING DIGITAL BREAST TOMOSYNTHESIS MAMMOGRAM WITH CAD HISTORY: SCREENING COMPARISON: 04/17/2021, 09/14/2020 and 06/07/2019 Bilateral CC and MLO views with tomosynthesis and synthetic mammography submitted. Computer aided det ection analyzed. Breast composition: The breasts are heterogeneously dense, which may obscure small masses. No suspici ous masses, microcalcifications or architectural distortion. Dense asymmetric fibroglandular tissue i n the anterior LEFT breast is stable over multiple years. Benign bilateral breast calcifications. Dutch g-term stability of an 8 mm nodule in the lateral posterior RIGHT breast. MM/[place] [id number] IMPRESSION: BI-RADS: 2-Benign FOLLOW UP: 1 Year Follow-up
== END 2022-05-07 08:48 | disposition home or self-care (01) ==
LOC: RAD 08:48
PROVIDERS: PCP Electrodiagnostic Medicine; Visit Provider Electrodiagnostic Medicine
DX: Z12.31 Encounter for screening mammogram for malignant neoplasm of breast (principal)
CPT/HCPCS: 77063; 77067

== ENCOUNTER 2022-06-25 07:04 | Emergency (ER) | payer MEDICARE, SELFPAY ==
[2022-06-25] VITALS (7 sets, daily range): BP systolic 126–149; BP diastolic 75–90; PULSE 76–93; RESP 13–16; TEMP 36.4; O2SAT 96–100; BMI 22.8
--- NOTE | 2022-06-25 07:21 | PC.NURSE ---
pt reports she woke up feeling sick and tingly. states she had felt fine but went to the bathroom and on the way back she started feeling weird. reports a syncopal episode on the way back, falling into the bed. family reports pt has a hx of this, but usually it is when she feels sick that it happens. reports was told in the past it was a vasovagal response. pt denies feeling dizzy or lightheaded. reports currently feels shaky and sick. denies loss of sensation, but reports generalized weakness and a mild headache. Denies fevers. reports good PO intake. Pt laying in bed, speech clear, speaking in complete sentences without difficulty. No arm or leg drift visualized. No facial asymmetry. Plant Facilities Technician equal. radial pulses strong. PERRL. A&Ox4. Plant Facilities Technician equal. Push/pull WNL. Skin pink/warm/dry. Lung sounds clear
--- NOTE | 2022-06-25 07:28 | CT_ITS ---
WS: [id number] CT HEAD NONCONTRAST HISTORY: syncope TECHNIQUE: Contiguous axial imaging performed through the brain in 2.5 mm imaging. Bone and soft tiss ue windows. Sagittal and coronal reformats reviewed. All CT scans at [facility] use at least one of these dose optimization techniques: automated exposure control; mA and/or kV adjustment per pa tient size (includes targeted exams where dose is matched to clinical indication); or iterative recon struction. DLP: 1034.08 mGy.cm COMPARISON: 09/16/2018 No acute intracranial hemorrhage, midline shift or mass effect. No atrophy or prior infarcts or herniation. Lacunar infarct LEFT external capsule. Ventricles: Normal size with no hydrocephalus. Paranasal sinuses: As visualized are clear. Mastoid air cells: Well pneumatized. Calvarium and scalp: Skull is intact with no soft tissue edema or swelling. CT/CT head wo con* [id number] IMPRESSION: 1. No acute intracranial hemorrhage or edema. 2. Small lacunar infarct LEFT external capsule.
--- NOTE | 2022-06-25 07:28 | ECG_ITS ---
[facility] Test Date: 2022-06-25 Pat Name: Aliya Lobato Department: Room: Gender: Female Specialist Field Engineer: : 1955 Requested By: Courtney Thompson Order Number: [id number] Londono MD: Cassidy Chambers M.D. Measurements Intervals [place] Rate: 78 P: 62 SC: 159 QRS: 21 QRSD: 134 T: -11 QT: 410 QTc: 470 Interpretive Statements SINUS RHYTHM WITH SINUS ARRHYTHMIA RIGHT BUNDLE BRANCH BLOCK Compared to ECG 03/19/2022 05:28:08 T-wave abnormality no longer present Possible ischemia no longer present Electronically Signed On 06-25-2022 16:21:18 CDT by Cassidy Chambers M.D. [email or web address]
--- NOTE | 2022-06-25 07:28 | XR_ITS ---
WS: [id number] Exam: XR chest 1V portable [id number] Date/Time of Exam: 06/25/2022 7:33 AM Reason For Exam: syncope Comparison 03/26/2022. Findings: The lungs are clear and fully expanded. Costophrenic angles are sharp. No infiltrates. Bronchovascula r relief appears normal. Cardiac silhouette is unremarkable. Bony elements are intact. Monitoring luciana ds superimpose the chest. XR/XR chest 1V portable [id number] IMPRESSION: Unremarkable chest radiograph.
--- NOTE | 2022-06-25 07:29 | ED_ITS ---
HPI - Syncope General: Chief Complaint: Syncope Stated Complaint: fainting episode Time Seen by Provider: 06/25/22 07:08 Source: patient and family () Mode of arrival: ambulatory Limitations: no limitations History of Present Illness: Patient is a 66-year-old male who presents to ED today along with her for an episode of possible syncope. Patient states she woke up this morning and walked to the bathroom and states she felt normal. She states on the way back to her bed she began feeling weak and shaky. Patient feels like she possibly passed out back into her bed. Denied lightheadedness, dizziness, chest pain, or palpitations. states he tried to arouse her and she was slow to come to . Patient states since she has had the episode she continues to feel weak and shaky. She is not complaining of any numbness, tingling, loss of sensation, unilateral weakness. She is not having any facial drooping, slurred speech, aphasia. states patient has had several of these episodes previously but nobody seems to identify a cause. No recent illness. No new medications. Onset (ago): hour(s) Prodromal symptoms: other (weak/shakey) Witnessed: Yes - by Bystander () Injuries sustained associated with event: none Associated symptoms: Deny abdominal pain, chest pain, fever(s), headache(s), lightheadedness or nausea Treatments prior to arrival: none Review of Systems Const: Denies: fever(s), chills, body aches, change in appetite, change in weight, fatigue, malaise, night sweats or diaphoresis Eyes: Denies: change in vision, blurry vision, photophobia, floaters or seeing flashes Card: Denies: chest pain, palpitations, irregular heart rhythm, edema, swelling of feet/ankles, lightheadedness, syncope, pre-syncope, dyspnea on exertion, orthopnea, leg pain with exertion or acrocyanosis Resp: Denies: dyspnea, productive cough, non-productive cough, wheezing, hemoptysis or chest congestion GI: Denies: abdominal pain, nausea, vomiting or diarrhea : Denies: flank pain, dysuria or hematuria Musc: Denies: neck pain, back pain, extremity pain or joint pain Skin/Breast: Denies: rash Neuro: Reports: other (reports generalized weakness and shakiness); Denies: headache(s), numbness in extremities, weakness in extremities, sensory changes, lack of coordination, frequent falls, dizziness, confusion, behavioral changes, Slurred speech present, difficulty communicating thoughts or seizure- like activity [facility] ED PFSH: Medical History Anxiety Physical Exam Const: COMMON NORMALS: no acute distress, average body habitus, patient oriented x3, no limitations, healthy appearing, alert and well nourished GENERAL APPEARANCE: cooperative ORIENTATION/CONSCIOUSNESS: Yes awake, Yes oriented to person, Yes oriented to place and Yes oriented to time HENMT: COMMON NORMALS: normocephalic and atraumatic HEAD & SCALP: normal to inspection, normocephalic and atraumatic Eye: GENERAL EYE: appearance normal, both eyes and all related structures and normal light reflex DIRECT OPHTHALMOSCOPY: Yes normal light reflex Neck/C-Spine: COMMON NORMALS: full ROM, no lymphadenopathy and no meningeal signs GENERAL: Yes normal visual inspection Resp: COMMON NORMALS: normal respiratory effort and clear to auscultation bilaterally AUSCULTATION: clear to auscultation bilaterally Cardio: COMMON NORMALS: regular rate and regular rhythm RATE: regular rate RHYTHM: regular rhythm GI: COMMON NORMALS: Normal to inspection, nondistended, normoactive bowel sounds present, Soft to palpation and non-tender PALPATION: Yes Soft to palpation Back/Pelvis: COMMON NORMALS: thoracic and lumbar spine normal to inspection, no thoracic nor lumbar tenderness and thoraco-lumbar ROM normal Extremity: COMMON NORMALS: normal to inspection, capillary refill normal, no joint enlargement, no clubbing, cyanosis or edema, no calf tenderness and no pedal edema GENERAL: Yes normal exam except as noted Neuro: [place] COMA SCALE: document GCS findings [place] coma scale eye opening: Spontaneous [place] coma scale verbal response: Orientated [place] coma scale motor response: [place] commands [place] coma scale total score: 15 COMMON NORMALS: patient oriented x3, CN's II-XII intact bilaterally, moves all extremities, no focal motor deficits and no sensory deficits noted SENSORIUM/ORIENTATION: Yes alert, Yes oriented to person, Yes oriented to place and Yes oriented to time MENINGEAL SIGNS: Yes no meningeal signs COORDINATION/BALANCE: [id number]-zb-[id number] test normal and vrty-fa-gpyn test normal SPEECH: speech normal GAIT: Yes Normal gait present MOTOR EXAM: 5/5 motor strength present throughout COORDINATION: atuavi-qu-zuek test normal and xjoa-kw-bziv test normal Skin: COMMON NORMALS: no rashes or lesions noted GENERAL SKIN EXAM: no rashes or lesions noted Course ED course: Orthostatics reviewed and negative. ES Vital Signs: Vital signs: Vital Signs Temperature 97.5 F L 06/25/22 07:13 Pulse Rate 77 06/25/22 08:30 Respiratory Rate 13 06/25/22 08:30 Blood Pressure 145/89 06/25/22 08:30 Pulse Oximetry 97 06/25/22 08:30 Oxygen Delivery Me thod 06/25/22 08:00 MDM - Syncope Medical Decision Making Patient has had multiple similar episodes previously. By history, they do not overly sound cardiogenic or neurologic. She states her PCP seems to think they might be related to anxiety. Her vital signs are stable here. Orthostatics are negative. Lab work is unremarkable. EKG showing no acute changes from previous. CT scan showing no acute findings. She did have a small lacunar infarct. Findings discussed with Dr. Pierce. At this time I do not see any reason for hospitalization. Recommend patient follow-up with Dr. Reed next week for re-evaluation. Turn to ED precautions given. Lab Data : 06/25/22 07:53 06/25/22 07:53 Radiology Impressions Chest X-Ray 06/25/22 07:28 IMPRESSION: Unremarkable chest radiograph. Head CT 06/25/22 07:28 IMPRESSION: 1. No acute intracranial hemorrhage or edema. 2. Small lacunar infarct LEFT external capsule. Laboratory Results WBC 6.0 10^3/uL (4.0-10.0) 06/25/22 07:53 RBC 4.25 10^6/uL (4.1-5.3) 06/25/22 07:53 Hgb 13.3 g/dL (11.5-15.3) 06/25/22 07:53 Hct 39.5 % (37.0-47.0) 06/25/22 07:53 MCV 92.9 fl (81-99) 06/25/22 07:53 MCH 31.3 pg (28.0-34.0) 06/25/22 07:53 MCHC 33.7 g/dL (30.0-36.0) 06/25/22 07:53 RDW 12.8 % (12.1-15.1) 06/25/22 07:53 Plt Count 243 10^3/cmm (130-400) 06/25/22 07:53 MPV 9.9 fL (7.4-10.4) 06/25/22 07:53 Neut % (Auto) 60.5 % 06/25/22 07:53 Lymph % (Auto) 32.4 % 06/25/22 07:53 [place] % (Auto) 5.0 % 06/25/22 07:53 Eos % (Auto) 1.2 % 06/25/22 07:53 Baso % (Auto) 0.7 % 06/25/22 07:53 Neut # (Auto) 3.61 10^3/uL (1.8-7.7) 06/25/22 07:53 Lymph # (Auto) 1.9 10^3/uL (0.8-4.8) 06/25/22 07:53 [place] # (Auto) 0.3 10^3/uL (0.2-0.9) 06/25/22 07:53 Eos # (Auto) 0.1 10^3/uL (0.0-0.8) 06/25/22 07:53 Baso # (Auto) 0.0 10^3/uL (0.0-0.1) 06/25/22 07:53 Nucleated RBC % (auto) 0 % 06/25/22 07:53 Nucleated RBCs # 0.0 /100WBC 06/25/22 07:53 Sodium 139 mmol/L (136-145) 06/25/22 07:53 Potassium 4.0 mmol/L (3.5-5.1) 06/25/22 07:53 Chloride 102 mmol/L (98-107) 06/25/22 07:53 Carbon Dioxide 26 mmol/L (22-29) 06/25/22 07:53 Anion Gap 15.0 (5-19) 06/25/22 07:53 BUN 11 mg/dL (8-23) 06/25/22 07:53 Creatinine 0.7 mg/dL (0.5-0.9) 06/25/22 07:53 GFR Calculation 83.7 mL/min (90-130) L 06/25/22 07:53 Glucose 112 mg/dL (65-115) 06/25/22 07:53 Calculated Osmolality 288 mOsm/kg (285-295) 06/25/22 07:53 Calcium 9.9 mg/dL (8.5-10.5) 06/25/22 07:53 Total Bilirubin 0.4 mg/dL (0.15-1.2) 06/25/22 07:53 AST 25 U/L (0-32) 06/25/22 07:53 ALT 31 U/L (0-33) 06/25/22 07:53 Alkaline Phosphatase 101 U/L (35-105) 06/25/22 07:53 Troponin T Baseline 7 ng/L (0-10) 06/25/22 07:53 Total Protein 6.8 g/dL (6.6-8.7) 06/25/22 07:53 Albumin 4.1 g/dL (3.5-5.2) 06/25/22 07:53 Globulin 2.7 g/dL (1.3-4.6) 06/25/22 07:53 Urine Color Yellow (Yellow) 06/25/22 08:38 Urine Appearance Clear (CLEAR) 06/25/22 08:38 Urine pH 7 (5-7) 06/25/22 08:38 Ur Specific [place] 1.010 (1.005-1.030) 06/25/22 08:38 Urine Protein Neg (Negative) 06/25/22 08:38 Urine Glucose (UA) Norm (Normal) 06/25/22 08:38 Urine Ketones Negative (Negative) 06/25/22 08:38 Urine Blood Neg (Negative) 06/25/22 08:38 Urine Nitrate Negative (Negative) 06/25/22 08:38 Urine Bilirubin Neg (Negative) 06/25/22 08:38 Urine Urobilinogen Norm mg/dL (Negative) 06/25/22 08:38 Ur Leukocyte Esterase Negative (Negative) 06/25/22 08:38 Discharge Plan Discharge Patient Disposition: Home Clinical Impression: Generalized weakness Syncope Qualifiers: Syncope type: unspecified Qualified Code(s): R55 - Syncope and collapse Condition: Stable Prescriptions: No Action vitamin B complex Tablet 1 tab PO QAM fluticasone propionate 50 mcg/actuation [place],Suspension 1 spray INTRANASAL DAILY PRN (Reason: Allergy Symptoms) Rx Instructions: administer into each nostril diazepam 5 mg Tablet 5 mg PO BEDTIME PRN (Reason: Sleep) Probiotic 15 billion cell Capsule 1 cap PO QAM digestive enzymes Capsule 1 cap PO DAILY Rx Instructions: administer with food; swallow whole; do not crush/chew/dissolve/break/cut famotidine 20 mg tablet 20 mg PO BID Vitamin C 500 mg Tablet 500 mg PO QAM zinc 50 mg Tablet 50 mg PO DAILY vitamin D3-vitamin K2 (MK4) 1,000-100 unit-mcg Tablet 1 tab PO DAILY Quercetin 1 tab PO EVERY OTHER DAY Discharge Orders: Discharge ED (Routine); Ordered 06/25/22 Ordered By: Courtney Thompson Referrals: Haseeb Reed DO [Primary Care Provider] - Coding Level of Care Code ED Dough Maker for Chg Fwd Exam Comprehensive NIH stroke score NIHSS Level Of Consciousness - 1a: 0 Level Of Consciousness Questions - 1b: Both Correct Level Of Consciousness Commands - 1c: Both Correct Best Gaze - 2: Normal Visual [place] - 3: No Visual Loss Facial Palsy - 4: Normal Motor Arm Right - 5: No Drift Motor Arm Left - 5: No Drift Motor Leg Right - 6: No Drift Motor Leg Left - 6: No Drift Limb Ataxia - 7: Absent Sensory - 8: Normal Best Language - 9: No Aphasia Dysarthia - 10: Normal Extinction And Inattention - 11: 0 Score Total Score: 0
[2022-06-25 08:02] LABS: Basophils % 0.7 %; Eosinophils # 0.1 10^3/uL (0.0-0.8); Eosinophils % 1.2 %; Hematocrit 39.5 % (37.0-47.0); Hemoglobin 13.3 g/dL (11.5-15.3); Lymphocytes # 1.9 10^3/uL (0.8-4.8); Lymphocytes % 32.4 %; Mean Corpuscular HGB Conc 33.7 g/dL (30.0-36.0); Mean Corpuscular Hemoglobin 31.3 pg (28.0-34.0); Mean Corpuscular Volume 92.9 fl (81-99); Mean Platelet Volume 9.9 fL (7.4-10.4); Monocytes # 0.3 10^3/uL (0.2-0.9); Neutrophils # 3.61 10^3/uL (1.8-7.7); Neutrophils % 60.5 %; Nucleated Red Blood Cells % 0 %; Platelet Count 243 10^3/cmm (130-400); Red Blood Count 4.25 10^6/uL (4.1-5.3); Red Cell Distribution Width 12.8 % (12.1-15.1)
[2022-06-25 08:29] LABS: Alanine Aminotransferase 31 U/L (0-33); Albumin Level 4.1 g/dL (3.5-5.2); Alkaline Phosphatase 101 U/L (35-105); Aspartate Amino Transferase 25 U/L (0-32); Blood Urea Nitrogen 11 mg/dL (8-23); Calcium 9.9 mg/dL (8.5-10.5); Carbon Dioxide 26 mmol/L (22-29); Chloride 102 mmol/L (98-107); Globulin 2.7 g/dL (1.3-4.6); Glomerular Filtration Rate 83.7 mL/min (90-130); Glucose 112 mg/dL (65-115); Osmolality Calculated 288 mOsm/kg (285-295); Sodium 139 mmol/L (136-145); Total Bilirubin 0.4 mg/dL (0.15-1.2); Total Protein 6.8 g/dL (6.6-8.7)
[2022-06-25 08:30] LABS: Troponin(5th) Baseline 7 ng/L (0-10)
[2022-06-25 09:01] LABS: Add Urine Microscopic? NO; Charge for UA Resulting for Rev
[2022-06-25 09:17] LABS: Bilirubin Urine Neg (Negative); Blood Urine Neg (Negative); Glucose Urine UA Norm (Normal); Ketones Urine Negative (Negative); Leukocyte Esterase Urine Negative (Negative); Nitrate Urine Negative (Negative); Protein Urine Neg (Negative); Urine Appearance Clear (CLEAR); Urine Color Yellow (Yellow); Urobilinogen Urine Norm (Negative); pH Urine 7 (5-7)
== END 2022-06-25 09:50 | disposition home or self-care (01) ==
PROVIDERS: Emergency Provider Physician Assistant; PCP Electrodiagnostic Medicine
DX: R55 Syncope and collapse (principal); R53.1 Weakness
CPT/HCPCS: 70450; 71045; 80053; 81003; 84484; 85025; 93005; 99285

== ENCOUNTER 2022-09-25 09:20 | Outpatient (CLI) | payer MEDICARE, SELFPAY ==
--- NOTE | 2022-09-25 | US_ITS ---
DIAGNOSTIC LEFT DIGITAL TOMOSYNTHESIS MAMMOGRAPHY WITH CAD. LEFT BREAST ULTRASOUND, LIMITED. HISTORY: DISCHARGE COMPARISON: 05/07/2022, 09/14/2020 and 06/07/2019 Technique: CC, MLO and ML views. Breast composition: There are scattered areas of fibroglandular density. Benign calcifications LEFT breast. There are no masses or nipple retraction. No increased soft tissue thickening. LEFT breast ultrasound, limited. No dilated ducts or mass posterior to the nipple. There is no shadowing or distortion. IMPRESSION: BI-RADS: 2-Benign FOLLOW UP: 1 Year Follow-up BAYLEE
--- NOTE | 2022-09-25 09:30 | MM_ITS ---
WS: [id number] DIAGNOSTIC LEFT DIGITAL TOMOSYNTHESIS MAMMOGRAPHY WITH CAD. LEFT BREAST ULTRASOUND, LIMITED. HISTORY: DISCHARGE COMPARISON: 05/07/2022, 09/14/2020 and 06/07/2019 Technique: CC, MLO and ML views. Breast composition: There are scattered areas of fibroglandular density. Benign calcifications LEFT breast. There are no masses or nipple retraction. No increased soft tissue thickening. LEFT breast ultrasound, limited. No dilated ducts or mass posterior to the nipple. There is no shadowing or distortion. MM/[place] [id number] IMPRESSION: BI-RADS: 2-Benign FOLLOW UP: 1 Year Follow-up
== END 2022-09-25 09:21 | disposition home or self-care (01) ==
LOC: RAD 09:23
PROVIDERS: PCP Electrodiagnostic Medicine; Visit Provider Electrodiagnostic Medicine
DX: N64.52 Nipple discharge (principal); R92.1 Mammographic calcification found on diagnostic imaging of breast
CPT/HCPCS: 76642; 77061; G0279

== ENCOUNTER 2022-11-16 10:16 | Emergency (ER) | payer MEDICARE, SELFPAY ==
[2022-11-16] VITALS (7 sets, daily range): BP systolic 124–152; BP diastolic 67–89; PULSE 77–93; RESP 12–22; TEMP 36.5; O2SAT 95–98; BMI 21.9
--- NOTE | 2022-11-16 10:18 | ECG_ITS ---
[facility] Test Date: 2022-11-16 Pat Name: Aliya Lobato Department: Room: Gender: Female Asp Web Developer: : 1955 Requested By: Rosina Garcia Order Number: [id number] Londono MD: Neil Hilton M.D. 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 [id number]
--- NOTE | 2022-11-16 10:56 | XRR_ITS ---
PROCEDURE INFORMATION: Exam: XR Chest Exam date and time: 11/16/2022 11:07 AM Age: 67 years old Clinical indication: Dyspnea; Additional info: Syncope TECHNIQUE: Imaging protocol: Radiologic exam of the chest. Views: 1 view. COMPARISON: CR XR chest 1V portable [id number] 06/25/2022 7:45 AM FINDINGS: Lungs: No consolidation. Pleural spaces: Unremarkable. No pleural effusion. No pneumothorax. Heart/Mediastinum: No significant cardiomegaly. Bones/joints: No acute finding. XR/XR chest 1V portable [id number] IMPRESSION: Unremarkable chest x-ray.
--- NOTE | 2022-11-16 10:56 | W.ED.SYNCOPE ---
HPI - Syncope General: Chief Complaint: Syncope Stated Complaint: SYNCOPE Time Seen by Provider: 11/16/22 10:56 History of Present Illness: Ms. Lobato is a 67-year-old lady with history of COPD presenting to the emergency department due to syncopal episode with CPR performed. She reports being in [facility] and standing up singing for approximately 15 minutes. She began to feel weird and sat down and the next thing she knows she was waking up on the ground with people around her. Family member reports no head strike or associated trauma. Apparently a nurse and physician in the [facility] assessed her and felt no pulse and CPR was performed. She currently endorses moderate to severe intensity sharp right-sided chest pain and generalized malaise. Worse with inspiration and palpation. She has had similar episodes in the past without clear explanation, possible vasovagal episodes. They do not correlate with any particular activity. Patient has had increased stress lately. She reports otherwise being at her baseline health the past few days. No other specific changes in health, exacerbating, or alleviating factors identified. Onset (ago): hour(s) Description of event: lost pulse and CPR performed Prodromal symptoms: lightheaded and other Witnessed: Yes - by Bystander Context: standing up Injuries sustained associated with event: chest Associated symptoms: Reports chest pain History: other Review of Systems General: Reports: 10 or more systems reviewed and unremarkable except in HPI and below Card: Reports: chest pain [facility] ED PFSH: Medical History Anxiety Breast discharge Chest pain COVID-19 06/2022 Dyspepsia General weakness 1 para 1 History of concussion 2018 Recurrent syncope Seasonal allergies Surgical History History of appendectomy History of hysterectomy History of tonsillectomy Family History Mother Breast cancer Diabetes Thyroid disease Father Cancer of kidney Brother Dementia Social History Smoking and tobacco status: never smoked Alcohol intake: never Household members: spouse Physical Exam Const: COMMON NORMALS: patient oriented x3 and alert GENERAL APPEARANCE: cooperative and well developed HENMT: COMMON NORMALS: normocephalic and atraumatic HEAD & SCALP: normocephalic and atraumatic Eye: COMMON NORMALS: conjunctivae normal CONJUNCTIVA: Yes conjunctivae normal SCLERA: sclerae normal Neck/C-Spine: COMMON NORMALS: supple GENERAL: Yes trachea midline Chest: OTHER: Right-sided parasternal mid lower tenderness palpation. Resp: COMMON NORMALS: clear to auscultation bilaterally EFFORT & INSPECTION: Yes able to speak in complete sentences AUSCULTATION: clear to auscultation bilaterally Cardio: COMMON NORMALS: regular rate and regular rhythm RATE: regular rate RHYTHM: regular rhythm GI: COMMON NORMALS: Soft to palpation PALPATION: Yes Soft to palpation and No Tenderness to palpation present (GI) Extremity: GENERAL: Yes normal exam except as noted and No edema Neuro: COMMON NORMALS: patient oriented x3, CN's II-XII intact bilaterally, moves all extremities, no focal motor deficits and no sensory deficits noted SENSORIUM/ORIENTATION: Yes alert and No Orientation impaired Psych: COMMON NORMALS: mental status grossly normal and Normal thought process present THOUGHT PROCESS: Normal thought process present Course Vital Signs: Vital signs: Vital Signs Temperature 97.7 F 11/16/22 10:20 Pulse Rate 83 11/16/22 15:35 Respiratory Rate 22 H 11/16/22 15:35 Blood Pressure 152/84 11/16/22 15:35 Pulse Oximetry 96 11/16/22 15:35 Oxygen Delivery Me thod 11/16/22 13:35 MDM - Syncope Medical Decision Making 67-year-old lady presenting with syncope that occurred at [facility] with CPR performed by bystanders and ROSC prior to EMS arrival. Exam as above with chest wall tenderness to palpation however no other significant findings. No neurologic deficits appreciated. EKG shows sinus rhythm with nonspecific ST segment abnormalities, right bundle branch block, normal RI interval, normal axis, no STEMI. Labs notable for only minimal leukocytosis, no significant change in hemoglobin or platelet count. Prior metabolic panel without significant electrolyte arrangement to explain symptoms. D-dimer elevated. Initial and 2-hour delta troponin of normal. No evidence of UTI. Negative viral panel. Chest x-ray without acute finding, no lobar consolidation or pneumothorax. CT head negative for acute intracranial pathology. CTA without evidence of pneumonia, rib x-rays, or pulmonary motion. Patient feels improved with analgesia and antiemetic. The results of ED evaluation were discussed with the patient including recommendation for admission. I discussed the uncertain nature of her symptoms which may be more orthostatic hypotension in nature than cardiac arrest though I am unsure. I discussed risk stratification by heart score and estimated risk of major adverse cardiac events. The patient wishes to proceed with outpatient management. I believe she has capacity to make medical decisions. She understands that she may return to the emergency department for any reason at any time. I discussed prescriptions and/or symptomatic cares (if applicable) including appropriate and responsible use, followup plan, and return precautions. The patient verbalized understanding and felt safe for discharge. Medical Records I reviewed the patient's medical records. Lab Data I reviewed the patient's lab results. 11/16/22 11:08 11/16/22 11:08 Radiology Impressions Chest X-Ray 11/16/22 10:56 IMPRESSION: Unremarkable chest x-ray. Head CT 11/16/22 11:08 IMPRESSION: No evidence of acute intracranial abnormality. No acute hemorrhage. No evidence of acute infarct or mass. Chest CTA 11/16/22 13:41 IMPRESSION: 1. No evidence of pulmonary emboli. 2. No consolidation or evidence of pneumonia. Laboratory Results WBC 10.1 10^3/uL (4.0-10.0) H 11/16/22 11:08 RBC 4.38 10^6/uL (4.1-5.3) 11/16/22 11:08 Hgb 13.4 g/dL (11.5-15.3) 11/16/22 11:08 Hct 40.6 % (37.0-47.0) 11/16/22 11:08 MCV 92.7 fl (81-99) 11/16/22 11:08 MCH 30.6 pg (28.0-34.0) 11/16/22 11:08 MCHC 33.0 g/dL (30.0-36.0) 11/16/22 11:08 RDW 12.1 % (12.1-15.1) 11/16/22 11:08 Plt Count 259 10^3/cmm (130-400) 11/16/22 11:08 MPV 10.6 fL (7.4-10.4) H 11/16/22 11:08 Neut % (Auto) 82.3 % 11/16/22 11:08 Lymph % (Auto) 12.9 % 11/16/22 11:08 [place] % (Auto) 3.6 % 11/16/22 11:08 Eos % (Auto) 0.4 % 11/16/22 11:08 Baso % (Auto) 0.4 % 11/16/22 11:08 Neut # (Auto) 8.35 10^3/uL (1.8-7.7) H 11/16/22 11:08 Lymph # (Auto) 1.3 10^3/uL (0.8-4.8) 11/16/22 11:08 [place] # (Auto) 0.4 10^3/uL (0.2-0.9) 11/16/22 11:08 Eos # (Auto) 0.0 10^3/uL (0.0-0.8) 11/16/22 11:08 Baso # (Auto) 0.0 10^3/uL (0.0-0.1) 11/16/22 11:08 Nucleated RBC % (auto) 0 % 11/16/22 11:08 Nucleated RBCs # 0.0 /100WBC 11/16/22 11:08 D-Dimer 1.61 ug/mIFEU (0-0.59) H 11/16/22 12:57 Sodium 137 mmol/L (136-145) 11/16/22 11:08 Potassium 4.2 mmol/L (3.5-5.1) 11/16/22 11:08 Chloride 100 mmol/L (98-107) 11/16/22 11:08 Carbon Dioxide 27 mmol/L (22-29) 11/16/22 11:08 Anion Gap 14.2 (5-19) 11/16/22 11:08 BUN 12 mg/dL (8-23) 11/16/22 11:08 Creatinine 0.6 mg/dL (0.5-0.9) 11/16/22 11:08 GFR Calculation 99.7 mL/min (90-130) 11/16/22 11:08 Glucose 123 mg/dL (65-115) H 11/16/22 11:08 Calculated Osmolality 285 mOsm/kg (285-295) 11/16/22 11:08 Calcium 10.0 mg/dL (8.5-10.5) 11/16/22 11:08 Magnesium 2.1 mg/dL (1.7-2.3) 11/16/22 11:08 Total Bilirubin 0.4 mg/dL (0.15-1.2) 11/16/22 11:08 AST 22 U/L (0-32) 11/16/22 11:08 ALT 21 U/L (0-33) 11/16/22 11:08 Alkaline Phosphatase 93 U/L (35-105) 11/16/22 11:08 Troponin T Baseline 6 ng/L (0-10) 11/16/22 11:08 Troponin T 120 Minute 6.00 ng/L (0-10) 11/16/22 12:57 Delta Troponin T 0 ABS# (0-10) 11/16/22 12:57 Total Protein 6.9 g/dL (6.6-8.7) 11/16/22 11:08 Albumin 4.2 g/dL (3.5-5.2) 11/16/22 11:08 Globulin 2.7 g/dL (1.3-4.6) 11/16/22 11:08 TSH 2.20 uIU/mL (0.27-4.20) 11/16/22 11:08 Urine Color Yellow (Yellow) 11/16/22 12:02 Urine Appearance Sl hazy (CLEAR) A 11/16/22 12:02 Urine pH 6 (5-7) 11/16/22 12:02 Ur Specific [place] 1.015 (1.005-1.030) 11/16/22 12:02 Urine Protein 1+ (Negative) H 11/16/22 12:02 Urine Glucose (UA) Norm (Normal) 11/16/22 12:02 Urine Ketones 1+ (Negative) H 11/16/22 12:02 Urine Blood 2+ (Negative) H 11/16/22 12:02 Urine Nitrate Negative (Negative) 11/16/22 12:02 Urine Bilirubin Neg (Negative) 11/16/22 12:02 Urine Urobilinogen Norm mg/dL (Negative) 11/16/22 12:02 Ur Leukocyte Esterase Negative (Negative) 11/16/22 12:02 Urine RBC None /hpf (0-2) 11/16/22 12:02 Urine WBC Rare /hpf (0-5) 11/16/22 12:02 Ur Squamous Epith Cells 0-4 /hpf (0-5) H 11/16/22 12:02 Amorphous Sediment Not Reportable 11/16/22 12:02 Urine Bacteria Trace /hpf (NONE) 11/16/22 12:02 Hyaline Casts 5-10 /lpf H 11/16/22 12:02 Urine Mucus 2+ /hpf 11/16/22 12:02 Discharge Plan Discharge Patient Disposition: Home Clinical Impression: Syncope and collapse, Chest wall contusion, Abnormal ECG Condition: Stable Prescriptions: No Action vitamin B complex Tablet 1 tab PO QAM fluticasone propionate 50 mcg/actuation [place],Suspension 1 spray INTRANASAL DAILY PRN (Reason: Allergy Symptoms) Rx Instructions: administer into each nostril diazepam 5 mg Tablet 5 mg PO BEDTIME PRN (Reason: Sleep) Probiotic 15 billion cell Capsule 1 cap PO QAM digestive enzymes Capsule 1 cap PO DAILY Rx Instructions: administer with food; swallow whole; do not crush/chew/dissolve/break/cut famotidine 20 mg tablet 20 mg PO BEDTIME ascorbic acid (vitamin C) [Vitamin C] 500 mg Tablet 500 mg PO QAM Quercetin 1 tab PO EVERY OTHER DAY zinc acetate 50 mg (zinc) Capsule 50 mg PO DAILY acetaminophen 500 mg Tablet 1,000 mg PO BID Vitamin D3 50 mcg (2,000 unit) Capsule 2,000 unit PO BID lisinopril 10 mg tablet 10 mg PO DAILY Qty: 30 2RF Discharge Orders: Discharge ED (Routine); Ordered 11/16/22 Ordered By: Cam Storey Referrals: Haseeb Reed DO [Primary Care Provider] - Discharge Diet: Usual diet Discharge Activity: Increase activity as tolerated Patient Instructions: Syncope (ED), Contusion in Adults (ED), Pain Management Activity Restrictions/Additional Instructions: Thank you for visiting the emergency department. You were seen and evaluated for syncope with chest compressions performed. The exact cause of your symptoms is unclear. I recommended admission which you are declining at this time. I will message case management for outpatient testing. Please follow-up with your primary care provider. Return to the emergency department for anything that you are concerned about a feel needs emergency department evaluation. Coding Level of Care Code ED Plastics Repairer for [place] Fwtomy Exam Comprehensive
--- NOTE | 2022-11-16 11:08 | CTR_ITS ---
PROCEDURE INFORMATION: Exam: CT Head Without Contrast Exam date and time: 11/16/2022 11:47 AM Age: 67 years old Clinical indication: Syncope and collapse TECHNIQUE: Imaging protocol: Computed tomography of the head without contrast. Radiation optimization: All CT scans at this facility use at least one of these dose optimization techniques: automated exposure control; mA and/or kV adjustment per patient size (includes targeted exams where dose is matched to clinical indication); or iterative reconstruction. 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 There is no acute intracranial hemorrhage. No extra-axial fluid collection. No evidence of acute infarct. Rosen white differentiation is intact. There is no evidence of mass. There is no mass effect or midline shift. Cerebral ventricles: No ventriculomegaly. Paranasal sinuses: Visualized sinuses are unremarkable. No fluid levels. Mastoid air cells: No significant mastoid effusion. Bones/joints: No acute fracture. Soft tissues: Unremarkable as visualized. CT/CT head wo con* [id number] IMPRESSION: No evidence of acute intracranial abnormality. No acute hemorrhage. No evidence of acute infarct or mass.
[2022-11-16] MEDS: ondansetron 2 mg/ML SDV 2 mL 4 MG IVP (11:20)
[2022-11-16 11:25] LABS: Basophils % 0.4 %; Eosinophils % 0.4 %; Hematocrit 40.6 % (37.0-47.0); Hemoglobin 13.4 g/dL (11.5-15.3); Lymphocytes # 1.3 10^3/uL (0.8-4.8); Lymphocytes % 12.9 %; Mean Corpuscular Hemoglobin 30.6 pg (28.0-34.0); Mean Corpuscular Volume 92.7 fl (81-99); Mean Platelet Volume 10.6 fL (7.4-10.4); Monocytes # 0.4 10^3/uL (0.2-0.9); Monocytes % 3.6 %; Neutrophils # 8.35 10^3/uL (1.8-7.7); Neutrophils % 82.3 %; Nucleated Red Blood Cells % 0 %; Platelet Count 259 10^3/cmm (130-400); Red Blood Count 4.38 10^6/uL (4.1-5.3); Red Cell Distribution Width 12.1 % (12.1-15.1); White Blood Count 10.1 10^3/uL (4.0-10.0)
[2022-11-16] MEDS: morphine 4 mg/mL SDV 1 mL IVP (11:28)
[2022-11-16 11:37] LABS: Troponin(5th) Baseline 6 ng/L (0-10)
[2022-11-16 11:46] LABS: Alanine Aminotransferase 21 U/L (0-33); Albumin Level 4.2 g/dL (3.5-5.2); Alkaline Phosphatase 93 U/L (35-105); Anion Gap 14.2 (5-19); Aspartate Amino Transferase 22 U/L (0-32); Blood Urea Nitrogen 12 mg/dL (8-23); Carbon Dioxide 27 mmol/L (22-29); Chloride 100 mmol/L (98-107); Globulin 2.7 g/dL (1.3-4.6); Glomerular Filtration Rate 99.7 mL/min (90-130); Glucose 123 mg/dL (65-115); Magnesium 2.1 mg/dL (1.7-2.3); Osmolality Calculated 285 mOsm/kg (285-295); Potassium 4.2 mmol/L (3.5-5.1); Sodium 137 mmol/L (136-145); Total Bilirubin 0.4 mg/dL (0.15-1.2); Total Protein 6.9 g/dL (6.6-8.7)
--- NOTE | 2022-11-16 12:56 | ECG_ITS ---
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 Measurements Intervals [place] Rate: 77 P: 74 [place]: 159 QRS: 50 QRSD: 125 T: -15 QT: 392 QTc: 444 Interpretive Statements SINUS RHYTHM WITH MARKED SINUS ARRHYTHMIA RIGHT BUNDLE BRANCH BLOCK [120+ ms QRS DURATION, UPRIGHT V1, 40+ ms S IN I/aVL/V4/V5/V6] Compared to ECG 11/16/2022 10:24:12 T-wave abnormality no longer present Possible ischemia no longer present Electronically Signed On 11-18-2022 7:51:05 CLIENT SERVICE CONSULTANT by Neil Hilton M.D. [email or web address]/store/[id number]
[2022-11-16 12:58] LABS: Add Urine Microscopic? YES; Bilirubin Urine Neg (Negative); Blood Urine 2+ (Negative); Glucose Urine UA Norm (Normal); Ketones Urine 1+ (Negative); Leukocyte Esterase Urine Negative (Negative); Nitrate Urine Negative (Negative); Protein Urine 1+ (Negative); Specific Gravity, Urine 1.015 (1.005-1.030); Urine Appearance SL Hazy (CLEAR); Urine Color Yellow (Yellow); Urobilinogen Urine Norm (Negative); pH Urine 6 (5-7)
[2022-11-16 13:02] LABS: Squamous Epithelial Cell Urine 0-4 /hpf (0-5); WBC Urine RARE /hpf (0-5)
[2022-11-16 13:03] LABS: Bacteria Urine TRACE /hpf; Mucus Urine 2+ /hpf
[2022-11-16 13:04] LABS: Add Urine Culture? No
[2022-11-16 13:40] LABS: D Dimer 1.61 ug/mIFEU (0-0.59)
--- NOTE | 2022-11-16 13:41 | CTR_ITS ---
PROCEDURE INFORMATION: Exam: CTA Chest With Contrast Exam date and time: 11/16/2022 2:03 PM Age: 67 years old Clinical indication: Other: Syncope, elevated ddimer, bystander performed cpr TECHNIQUE: Imaging protocol: Computed tomographic angiography of the chest with contrast. 3D rendering (Not supervised by radiologist): MIP and/or 3D reconstructed images were created by the technologist. Radiation optimization: All CT scans at this facility use at least one of these dose optimization techniques: automated exposure control; mA and/or kV adjustment per patient size (includes targeted exams where dose is matched to clinical indication); or iterative reconstruction. Contrast material: OMNI 350; Contrast volume: 65 ml; Contrast route: INTRAVENOUS (IV); COMPARISON: CR (CHEST, ) 11/16/2022 11:07 AM RADIATION DOSE METRICS: Total DLP (mGy-cm): 239.56 FINDINGS: Pulmonary arteries: Normal. No pulmonary emboli. Aorta: Unremarkable. No aortic aneurysm. No aortic dissection. Lungs: No consolidation. No evidence of lung mass. Small amount of linear atelectasis or scarring in lung bases. Pleural spaces: Unremarkable. No pneumothorax. No pleural effusion. Heart: Unremarkable. No cardiomegaly. No pericardial effusion. Lymph nodes: Unremarkable. No enlarged lymph nodes. Bones/joints: Unremarkable. No acute fracture. Soft tissues: Unremarkable. CT/CT angio chest PE protcl [id number] IMPRESSION: 1. No evidence of pulmonary emboli. 2. No consolidation or evidence of pneumonia.
[2022-11-16] MEDS: iohexol 350 mg/mL 500 mL Btl (per mL) IV (14:03)
[2022-11-16 15:00] LABS: Troponin 5 2HR Delta 0 ABS# (0-10)
--- NOTE | 2022-11-17 15:39 | DCPLANNER ---
sales property manager had message to schedule an outpatient stress test and echo cardiogram for patient. sales property manager faxed signed order to centralized scheduling, who will call patient with appointment information. sales property manager also faxed patients primary care physician, Dr. Reed, at [facility] notification that patient had tests ordered from the ER.
== END 2022-11-16 15:35 | disposition home or self-care (01) ==
PROVIDERS: Physician Assistant; Emergency Provider Emergency Medicine; PCP Electrodiagnostic Medicine
DX: R55 Syncope and collapse (principal); S20.219A Contusion of unspecified front wall of thorax, initial encounter; R94.31 Abnormal electrocardiogram [ECG] [EKG]; W50.0XXA Accidental hit or strike by another person, initial encounter
CPT/HCPCS: 70450; 71045; 71275; 80053; 81001; 83735; 84443; 84484; 85025; 85378; 93005; 96374; 96375; 99285; J2270; J2405; Q9967

== ENCOUNTER 2022-11-18 10:27 | Observation (INO) | payer MEDICARE, SELFPAY ==
[2022-11-18] VITALS (7 sets, daily range): BP systolic 127–157; BP diastolic 65–89; PULSE 72–90; RESP 16–18; TEMP 36.7–37.1; O2SAT 96–98
--- NOTE | 2022-11-18 10:51 | ECG_ITS ---
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 Measurements Intervals [place] Rate: 72 P: 91 TN: 145 QRS: 51 QRSD: 133 T: -2 QT: 396 QTc: 436 Interpretive Statements SINUS RHYTHM RIGHT BUNDLE BRANCH BLOCK [120+ ms QRS DURATION, UPRIGHT V1, 40+ ms S IN I/aVL/V4/V5/V6] MODERATE T-WAVE ABNORMALITY, CONSIDER LATERAL ISCHEMIA [-0.1+ mV T-WAVE IN I/aVL/V5/V6] INTERPRETATION BASED ON A DEFAULT AGE OF 40 YEARS Compared to ECG 11/16/2022 12:56:02 T-wave abnormality now present Possible ischemia now present Sinus arrhythmia no longer present Electronically Signed On 11-18-2022 14:51:50 DRYWALL TAPER by Neil Hilton M.D. [id number]
--- NOTE | 2022-11-18 10:58 | W.ED.WEAKNES ---
HPI - Weakness General: Chief complaint: Weakness Stated complaint: Dr. Reed sent for heart issues Time Seen by Provider: 11/18/22 10:50 History of Present Illness: Ms. Lobato is a 61-year-old lady with history of anxiety and COPD presenting to the emergency department for generalized weakness. She was seen in the emergency department secondary to collapse with unclear etiology with a short period of CPR performed 2 days ago. She reports feeling weak and generalized malaise the subsequent day with improvement yesterday however worse again starting last night. She reports increased sleepiness, generalized fatigue and malaise. She denies focal infectious symptoms. Intensity symptoms is moderate to severe. Course has now worsened again. No other specific changes in health, exacerbating, or alleviating factors identified. Onset (ago): day(s) Duration: intermittent Location: generalized Severity: moderate Relieving factors: none Exacerbating factors: exertion Review of Systems General: Reports: 10 or more systems reviewed and unremarkable except in HPI and below PFSH ED PFSH: Medical History Anxiety Breast discharge Chest pain COVID-19 06/2022 Dyspepsia General weakness 1 para 1 History of concussion 2018 Recurrent syncope Seasonal allergies Surgical History History of appendectomy History of hysterectomy History of tonsillectomy Family History Mother Breast cancer Diabetes Thyroid disease Father Cancer of kidney Brother Dementia Social History Smoking and tobacco status: never smoked Alcohol intake: never Household members: spouse Physical Exam Const: COMMON NORMALS: patient oriented x3 and alert GENERAL APPEARANCE: cooperative, well developed and ill appearing HENMT: COMMON NORMALS: normocephalic and atraumatic HEAD & SCALP: normocephalic and atraumatic Eye: COMMON NORMALS: conjunctivae normal CONJUNCTIVA: Yes conjunctivae normal SCLERA: sclerae normal Neck/C-Spine: COMMON NORMALS: supple GENERAL: Yes trachea midline Resp: COMMON NORMALS: clear to auscultation bilaterally EFFORT & INSPECTION: Yes able to speak in complete sentences AUSCULTATION: clear to auscultation bilaterally Cardio: COMMON NORMALS: regular rate and regular rhythm RATE: regular rate RHYTHM: regular rhythm GI: COMMON NORMALS: Soft to palpation PALPATION: Yes Soft to palpation and No Tenderness to palpation present (GI) Extremity: GENERAL: Yes normal exam except as noted and No edema Neuro: COMMON NORMALS: patient oriented x3, CN's II-XII intact bilaterally, moves all extremities, no focal motor deficits and no sensory deficits noted SENSORIUM/ORIENTATION: Yes alert and No Orientation impaired Psych: COMMON NORMALS: mental status grossly normal and Normal thought process present THOUGHT PROCESS: Normal thought process present Course Vital Signs: Vital signs: Vital Signs Temperature 98.4 F 11/19/22 14:21 Pulse Rate 85 11/19/22 14:21 Respiratory Rate 20 H 11/19/22 14:21 Blood Pressure 134/74 11/19/22 14:21 Pulse Oximetry 97 11/19/22 14:21 Oxygen Delivery Me thod 11/19/22 11:25 MDM - Weakness Medical Decision Making 67-year-old lady presenting with generalized malaise after presenting 2 days ago for syncope with no palpable pulse and short duration CPR. Exam as above. Patient is nontoxic. EKG notable for sinus rhythm right bundle-branch block, ST segment abnormalities, no STEMI. On repeat patient developed short MN interval. Overall similar appearance to prior. Labs with no significant hematologic or metabolic abnormalities, similar to prior. Initial and 2-hour delta troponin are in the negative range. Mild dehydration noted on urinalysis. Negative viral panel. Chest x-ray with no lobar consolidation or pneumothorax also similar to prior. Patient has had recurrent episodes of presyncope and a quite concerning syncopal episode previously. The exact patient's recurrent syncope is unclear though given recurrence and high risk features he is reasonable for further evaluation of possible cardiac etiology in the inpatient observation setting. The results of ED evaluation were discussed with the patient including plan for admission due to requirement for level of care not available if discharged to prevent significant worsening/deterioration. Patient agreeable with plan. Discussed with hospitalist service who was agreeable to admit patient. Medical Records I reviewed the patient's medical records. Lab Data I reviewed the patient's lab results. 11/18/22 11:00 11/18/22 11:00 Radiology Impressions Chest X-Ray 11/18/22 11:28 IMPRESSION: 1. No acute cardiopulmonary finding. No change. Laboratory Results WBC 6.2 10^3/uL (4.0-10.0) 11/18/22 11:00 RBC 4.43 10^6/uL (4.1-5.3) 11/18/22 11:00 Hgb 13.8 g/dL (11.5-15.3) 11/18/22 11:00 Hct 41.2 % (37.0-47.0) 11/18/22 11:00 MCV 93.0 fl (81-99) 11/18/22 11:00 MCH 31.2 pg (28.0-34.0) 11/18/22 11:00 MCHC 33.5 g/dL (30.0-36.0) 11/18/22 11:00 RDW 12.1 % (12.1-15.1) 11/18/22 11:00 Plt Count 254 10^3/cmm (130-400) 11/18/22 11:00 MPV 10.1 fL (7.4-10.4) 11/18/22 11:00 Neut % (Auto) 75.2 % 11/18/22 11:00 Lymph % (Auto) 18.9 % 11/18/22 11:00 [place] % (Auto) 4.8 % 11/18/22 11:00 Eos % (Auto) 0.3 % 11/18/22 11:00 Baso % (Auto) 0.5 % 11/18/22 11:00 Neut # (Auto) 4.69 10^3/uL (1.8-7.7) 11/18/22 11:00 Lymph # (Auto) 1.2 10^3/uL (0.8-4.8) 11/18/22 11:00 [place] # (Auto) 0.3 10^3/uL (0.2-0.9) 11/18/22 11:00 Eos # (Auto) 0.0 10^3/uL (0.0-0.8) 11/18/22 11:00 Baso # (Auto) 0.0 10^3/uL (0.0-0.1) 11/18/22 11:00 Nucleated RBC % (auto) 0 % 11/18/22 11:00 Nucleated RBCs # 0.0 /100WBC 11/18/22 11:00 Sodium 139 mmol/L (136-145) 11/18/22 11:00 Potassium 3.9 mmol/L (3.5-5.1) 11/18/22 11:00 Chloride 99 mmol/L (98-107) 11/18/22 11:00 Carbon Dioxide 29 mmol/L (22-29) 11/18/22 11:00 Anion Gap 14.9 (5-19) 11/18/22 11:00 BUN 9 mg/dL (8-23) 11/18/22 11:00 Creatinine 0.6 mg/dL (0.5-0.9) 11/18/22 11:00 GFR Calculation 99.7 mL/min (90-130) 11/18/22 11:00 Glucose 111 mg/dL (65-115) 11/18/22 11:00 Calculated Osmolality 287 mOsm/kg (285-295) 11/18/22 11:00 Calcium 10.4 mg/dL (8.5-10.5) 11/18/22 11:00 Total Bilirubin 0.5 mg/dL (0.15-1.2) 11/18/22 11:00 AST 22 U/L (0-32) 11/18/22 11:00 ALT 19 U/L (0-33) 11/18/22 11:00 Alkaline Phosphatase 90 U/L (35-105) 11/18/22 11:00 Creatine Kinase 134 U/L (26-192) 11/18/22 11:00 Troponin T Baseline 6 ng/L (0-10) 11/18/22 11:00 Troponin T 120 Minute 6.00 ng/L (0-10) 11/18/22 12:57 Delta Troponin T 0 ABS# (0-10) 11/18/22 12:57 Total Protein 7.4 g/dL (6.6-8.7) 11/18/22 11:00 Albumin 4.4 g/dL (3.5-5.2) 11/18/22 11:00 Globulin 3.0 g/dL (1.3-4.6) 11/18/22 11:00 Urine Color Yellow (Yellow) 11/18/22 12:22 Urine Appearance Clear (CLEAR) 11/18/22 12:22 Urine pH 6 (5-7) 11/18/22 12:22 Ur Specific [place] 1.010 (1.005-1.030) 11/18/22 12:22 Urine Protein Neg (Negative) 11/18/22 12:22 Urine Glucose (UA) Norm (Normal) 11/18/22 12:22 Urine Ketones 2+ (Negative) H 11/18/22 12:22 Urine Blood Neg (Negative) 11/18/22 12:22 Urine Nitrate Negative (Negative) 11/18/22 12:22 Urine Bilirubin Neg (Negative) 11/18/22 12:22 Urine Urobilinogen Norm mg/dL (Negative) 11/18/22 12:22 Ur Leukocyte Esterase Negative (Negative) 11/18/22 12:22 Coronavirus 229E (PCR) Not detected (NOT DETECT) 11/18/22 11:20 SARS-CoV-2 (PCR) Not detected (NOT DETECT) 11/18/22 11:20 Discharge Plan Discharge Patient Disposition: Placed in Observation Admit Provider: Daina Segura Clinical Impression: Recurrent syncope, Chest pain, General weakness Discharge Diet: Cardiac Coding Level of Care Code ED Electric Accounting Machine Operator for Chg Fwd Exam Comprehensive
[2022-11-18 11:06] LABS: Basophils % 0.5 %; Eosinophils % 0.3 %; Hematocrit 41.2 % (37.0-47.0); Hemoglobin 13.8 g/dL (11.5-15.3); Lymphocytes # 1.2 10^3/uL (0.8-4.8); Lymphocytes % 18.9 %; Mean Corpuscular HGB Conc 33.5 g/dL (30.0-36.0); Mean Corpuscular Hemoglobin 31.2 pg (28.0-34.0); Mean Platelet Volume 10.1 fL (7.4-10.4); Monocytes # 0.3 10^3/uL (0.2-0.9); Monocytes % 4.8 %; Neutrophils # 4.69 10^3/uL (1.8-7.7); Neutrophils % 75.2 %; Nucleated Red Blood Cells % 0 %; Platelet Count 254 10^3/cmm (130-400); Red Blood Count 4.43 10^6/uL (4.1-5.3); Red Cell Distribution Width 12.1 % (12.1-15.1); White Blood Count 6.2 10^3/uL (4.0-10.0)
--- NOTE | 2022-11-18 11:23 | PC.NURSE ---
pt on bedside product management manager
[2022-11-18 11:25] LABS: Troponin(5th) Baseline 6 ng/L (0-10)
[2022-11-18 11:27] LABS: Alanine Aminotransferase 19 U/L (0-33); Albumin Level 4.4 g/dL (3.5-5.2); Alkaline Phosphatase 90 U/L (35-105); Anion Gap 14.9 (5-19); Aspartate Amino Transferase 22 U/L (0-32); Blood Urea Nitrogen 9 mg/dL (8-23); Calcium 10.4 mg/dL (8.5-10.5); Carbon Dioxide 29 mmol/L (22-29); Chloride 99 mmol/L (98-107); Glomerular Filtration Rate 99.7 mL/min (90-130); Glucose 111 mg/dL (65-115); Osmolality Calculated 287 mOsm/kg (285-295); Potassium 3.9 mmol/L (3.5-5.1); Sodium 139 mmol/L (136-145); Total Bilirubin 0.5 mg/dL (0.15-1.2); Total Protein 7.4 g/dL (6.6-8.7)
--- NOTE | 2022-11-18 11:28 | XR_ITS ---
WS: [id number] Exam: XR chest 1V portable [id number] Date/Time of Exam: 11/18/2022 11:37 AM Reason For Exam: malaise, hx syncope Comparison 11/16/2022. The lungs are clear and fully expanded. Normal cardiomediastinal silhouette and regional bony element s. No pleural effusions. Monitoring leads superimpose the chest. XR/XR chest 1V portable [id number] IMPRESSION: 1. No acute cardiopulmonary finding. No change.
[2022-11-18 12:29] LABS: Add Urine Microscopic? NO; Charge for UA Resulting for Rev
[2022-11-18 12:35] LABS: Bilirubin Urine Neg (Negative); Blood Urine Neg (Negative); Glucose Urine UA Norm (Normal); Ketones Urine 2+ (Negative); Leukocyte Esterase Urine Negative (Negative); Nitrate Urine Negative (Negative); Protein Urine Neg (Negative); Urine Appearance Clear (CLEAR); Urine Color Yellow (Yellow); Urobilinogen Urine Norm (Negative); pH Urine 6 (5-7)
--- NOTE | 2022-11-18 12:51 | ECG_ITS ---
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 Measurements Intervals [place] Rate: 78 P: 42 [place]: 117 QRS: 48 QRSD: 131 T: -65 QT: 398 QTc: 455 Interpretive Statements SINUS RHYTHM WITH SHORT NV INTERVAL RIGHT BUNDLE BRANCH BLOCK [120+ ms QRS DURATION, UPRIGHT V1, 40+ ms S IN I/aVL/V4/V5/V6] MODERATE T-WAVE ABNORMALITY, CONSIDER LATERAL ISCHEMIA [-0.1+ mV T-WAVE IN I/aVL/V5/V6] MODERATE T-WAVE ABNORMALITY, CONSIDER INFERIOR ISCHEMIA [-0.1+ mV T-WAVE IN II/aVF] Compared to ECG 11/18/2022 10:53:36 Short NV interval now present T-wave abnormality still present Possible ischemia still present Electronically Signed On 11-18-2022 14:52:24 BARROW WORKER HELPER by Neil Hilton M.D. [id number]
[2022-11-18] MEDS: sodium chloride 0.9% 1,000 ML 999 ML IV (13:04)
[2022-11-18 13:05] LABS: Adenovirus Not Detected (NOT DETECT); Chlamydia Pneumoniae Not Detected (NOT DETECT); Coronavirus 229E,HKU1,NL63,OC4 Not Detected (NOT DETECT); Human Metapneumovirus Not Detected (NOT DETECT); Human Rhinovirus/Enterovirus Not Detected (NOT DETECT); Influenza A Not Detected (NOT DETECT); Influenza A H1 Not Detected (NOT DETECT); Influenza A H1-2009 Not Detected (NOT DETECT); Influenza A H3 Not Detected (NOT DETECT); Influenza B Not Detected (NOT DETECT); Mycoplasma Pneumoniae Not Detected (NOT DETECT); Parainfluenza Virus Type 1 Not Detected (NOT DETECT); Parainfluenza Virus Type 2 Not Detected (NOT DETECT); Parainfluenza Virus Type 3 Not Detected (NOT DETECT); Parainfluenza Virus Type 4 Not Detected (NOT DETECT); Respiratory Syncytial Virus A Not Detected (NOT DETECT); Respiratory Syncytial Virus B Not Detected (NOT DETECT); SARS-COV-2 Not Detected (NOT DETECT)
[2022-11-18 13:36] LABS: Troponin 5 2HR Delta 0 ABS# (0-10)
--- NOTE | 2022-11-18 14:01 | USCV_ITS ---
lAiya Lobato Age: 67 Gender: F : 1955 Exam Date: 11/18/2022 14:36 Ordering Phys: Cam Storey MD Technologist: Chandler Hicks Exam Location: [facility] Indication: chest pain BP: 127 / 65 HR: 84 Rhythm: Sinus Technical Quality: Adequate MEASUREMENTS (Male / Female) Normal Values 2D ECHO LV Diastolic Diameter PLAX 4.4 cm 4.2 - 5.9 / 3.9 - 5.3 cm LV Systolic Diameter PLAX 2.0 cm IVS Diastolic Thickness 1.0 cm 0.6 - 1.0 / 0.6 - 0.9 cm IVS Systolic Thickness 1.5 cm LVPW Diastolic Thickness 0.9 cm 0.6 - 1.0 / 0.6 - 0.9 cm LVPW Systolic Thickness 1.4 cm LVOT Diameter 2.0 cm LV Ejection Fraction 2D Teich 84.7 % LV Ejection Fraction MOD 2C 70.0 % LV Ejection Fraction 2C AL 69.6 % LA Diameter 3.3 cm Aorta at Sinotubular Diameter 2.6 cm IVC Diameter 1.3 cm M-MODE Aortic Annulus Diameter 2.6 cm LA Ao Ratio MM 1.4 MV E Point Septal Separation 0.5 cm DOPPLER AV Peak Velocity 124.0 cm/s LVOT Peak Velocity 115.0 cm/s AV Area Cont Eq vti 2.8 cm squared AV Area Cont Eq pk 3.0 cm squared MV Area PHT 5.0 cm squared Mitral E to A Ratio 1.4 MV E' Velocity 44.0 cm/s Mitral E to MV E' Ratio 7.3 Mitral E to LV E' Lateral Ratio 7.0 Mitral E to LV E' Septal Ratio 7.7 TR Peak Velocity 124.0 cm/s TR Peak Gradient 6.2 mmHg TV Peak E Velocity 94.0 cm/s Right Atrial Pressure 3.0 mmHg Pulmonary Artery Systolic Pressu 9.2 mmHg RV Acceleration Time 0.1 s FINDINGS Left Ventricle Left ventricle is normal in size. LV systolic function is normal with EF of 55 to 60%. No regional wall motion abnormalities are seen. Diastolic function is normal Right Ventricle Normal in size and function Right Atrium Normal in size Left Atrium Normal in size Mitral Valve Structurally normal mitral valve. Trace mitral regurgitation. Aortic Valve Structurally normal aortic valve. No significant stenosis or regurgitation. Tricuspid Valve Mild tricuspid regurgitation. Pulmonary artery systolic pressure is normal. Pulmonic Valve Not well visualized. Mild pulmonic regurgitation Pericardium Trace pericardial effusion Aorta Normal in size IVC Appears to be normal CONCLUSIONS LV systolic function is normal with EF 55 to 60%. Diastolic function is normal. Trace mitral regurgitation Mild tricuspid regurgitation Mild pulmonic regurgitation Trace pericardial effusion Compared to prior echocardiogram from 2018, no significant changes seen. Neil Hilton MD (Electronically Signed) Final Date: 19 November 2022 10:56 S
--- NOTE | 2022-11-18 16:17 | PM.HP ---
Providers/Chief Complaint Admitting Physician: Daina Segura MD Primary Care Provider: Haseeb Reed DO Chief Complaint: Dr. Reed sent for heart issues History of Present Illness Aliya Lobato is a 67 year old female who presented to the emergency room with chief complaint of weakness and complete exhaustion. She got up and was fixing breakfast this morning when she realized that something was not right. She sat down and subsequently had to lay down because she was so tired. She states she nearly passed out. Had what she described as a complete body drain . This past Thursday while at [employer], she had a syncopal episode after being up singing for a little while. Her primary care provider Dr. Reed happened to be present as were nursing staff. She did not have a palpable pulse and received CPR for period of time. She was evaluated in the emergency room then. Chest x-ray was unremarkable, CT of the head showed no acute intracranial abnormality, CTA of the chest showed no evidence of pulmonary emboli or consolidation or evidence of pneumonia. Heart was noted to be unremarkable with no cardiomegaly or evidence of pericardial effusion. Laboratory studies showed slightly elevated blood sugar at 123, D-dimer that was 1.61 and some urinary ketones. Twelve-lead EKG showed sinus rhythm with sinus arrhythmia and right bundle branch block on Thursday. Patient has had intermittent episodes of syncope off and on over the years. She has had previous event monitor that did not reveal an arrhythmia. At times she has been felt to be dehydrated. This past Thursday was the first time that a syncopal episode of been witnessed by medical staff. Mrs. Lobato was offered admission on Thursday but declined to stay. She felt okay yesterday and was able to function but today things were very different prompting her to return. Work-up today was again revealing with unremarkable laboratory studies. EKG is similar to previous. Chest x-ray is again without acute finding. No recent fevers. She has had chills but has been cold if she is not under the blanket. She currently has a headache but has not had anything to eat today. She describes some nausea often in the mornings. She had COVID in June 2022. After that she developed symptoms suggestive of gastric ulcers and has been on H2 naz. Not too long after recovering from COVID she started having some drainage from one of her nipples, sometimes with blood. She has had mammogram and ultrasound that were unremarkable and is scheduled to undergo an MRI of her breast in [place] next Thursday. Worry about the outcome of that MRI has been stressful. She did wake up with a panic attack last night around 2:45 in the morning. She has had panic attacks in the past. She takes Valium if needed prior to sleep. She had a concussion in 2018 resulting from a syncopal spell and reports increased frequency of syncope since then. With recent events and acute worsening today she is being admitted for monitoring and further evaluation. Review of Systems Const: Reports: fatigue; Denies: fever(s) or change in weight Eyes: Denies: change in vision ENMT: Reports: nasal congestion; Denies: throat pain, ear discharge or tinnitus Card: Reports: palpitations (Had PVCs last night that were prominent), lightheadedness, syncope and pre-syncope; Denies: chest pain Resp: Denies: productive cough, non-productive cough or pain on inspiration GI: Denies: nausea, vomiting, diarrhea, constipation or hematochezia : Denies: difficulty voiding Neuro: Reports: headache(s), weakness in extremities (General rather than focal) and difficulty walking (Due to being completely exhausted today hard to get around); Denies: numbness in extremities Psych: Reports: anxiety, panic attacks (Had a significant event last night) and other (Worried about upcoming MRI of the breast especially with family history) Medications/Allergies Home Medications Medication Instructions Recorded Confirmed Last Taken Type Lactobacillus acidophilus and 1 cap PO QAM 03/18/22 11/18/22 06/24/22 History rhamnosus 15 billion cell capsule (Probiotic) diazepam 5 mg tablet 5 mg PO BEDTIME PRN Sleep 03/18/22 11/18/22 11/17/22 History fluticasone propionate 50 1 spray intranasal DAILY PRN 03/18/22 11/18/22 Unknown History mcg/actuation nasal Allergy Symptoms spray,suspension vitamin B complex 1 tab PO QAM 03/18/22 11/18/22 06/24/22 History Quercetin 1 tab PO EVERY OTHER DAY 06/25/22 11/18/22 Unknown History ascorbic acid (vitamin C) 500 mg 500 mg PO QAM 06/25/22 11/18/22 06/24/22 History tablet (Vitamin C) digestive enzymes 1 cap PO DAILY 06/25/22 11/18/22 11/17/22 History famotidine 20 mg tablet 20 mg PO BEDTIME 06/25/22 11/18/22 11/17/22 History acetaminophen 500 mg tablet 1,000 mg PO BID 11/18/22 11/18/22 11/17/22 21:00 History cholecalciferol (vitamin D3) 50 2,000 unit PO BID 11/18/22 11/18/22 Unknown History mcg (2,000 unit) capsule (Vitamin D3) zinc acetate 50 mg (zinc) capsule 50 mg PO DAILY 11/18/22 11/18/22 Unknown History Allergies Allergy/AdvReac Type Severity Reaction Status Date / Time ciprofloxacin [From Cipro] Allergy ADR-Faintin Verified 11/18/22 11:23 g Penicillins Allergy ADR-Nausea Verified 11/18/22 11:24 PFSH Acute PFSH: Medical History (Updated 11/18/22 @ 17:27 by Daina Segura MD) Anxiety COVID-19 06/2022 1 para 1 History of concussion 2018 Seasonal allergies Surgical History (Updated 11/18/22 @ 17:16 by Daina Segura MD) History of appendectomy History of hysterectomy History of tonsillectomy Family History (Updated 11/18/22 @ 17:17 by Daina Segura MD) Mother Breast cancer Diabetes Thyroid disease Father Cancer of kidney Brother Dementia Social History (Updated 11/18/22 @ 17:17 by Daina Segura MD) Smoking and tobacco status: never smoked Alcohol intake: never Substance/Drug Use: never Household members: spouse Vitals/I&O/Wt Last Vital Signs Temp 98.0 F 11/18/22 10:42 Pulse 81 11/18/22 14:00 Resp 18 11/18/22 14:00 BP 127/65 11/18/22 14:00 Pulse Ox 96 11/18/22 14:00 O2 Del Method 11/18/22 14:00 11/18/22 11/18/22 11/18/22 06:59 14:59 22:59 Intake Total 1000 / 1000 Balance 1000 / 1000 Weight last 48 hrs Weight 67.585 kg Physical Exam Narrative: Patient is awake and alert, looks like she does not feel well. Able to provide history. Normocephalic. Extraocular movements are intact. No nystagmus. Pupils are equally reactive. Face is symmetric. Nasopharynx is clear. Oropharynx with moist mucous membranes, fair dentition. Cotton balls are in her ears to act as earplugs. Neck is supple. Lungs are clear to auscultation bilaterally without any rales rhonchi or wheezes noted cardiovascular exam reveals a regular rate and rhythm without any murmurs gallops or rubs. Abdomen is soft, nontender. Extremities without any pitting edema. Pedal pulses are 2+ and equal. Toes are downgoing. Moves all extremities. No abnormal movements. Data 11/18/22 11:00 11/18/22 11:00 Other Labs: Radiology Impressions Chest X-Ray 11/18/22 11:28 IMPRESSION: 1. No acute cardiopulmonary finding. No change. Laboratory Results WBC 6.2 10^3/uL (4.0-10.0) 11/18/22 11:00 RBC 4.43 10^6/uL (4.1-5.3) 11/18/22 11:00 Hgb 13.8 g/dL (11.5-15.3) 11/18/22 11:00 Hct 41.2 % (37.0-47.0) 11/18/22 11:00 MCV 93.0 fl (81-99) 11/18/22 11:00 MCH 31.2 pg (28.0-34.0) 11/18/22 11:00 MCHC 33.5 g/dL (30.0-36.0) 11/18/22 11:00 RDW 12.1 % (12.1-15.1) 11/18/22 11:00 Plt Count 254 10^3/cmm (130-400) 11/18/22 11:00 MPV 10.1 fL (7.4-10.4) 11/18/22 11:00 Neut % (Auto) 75.2 % 11/18/22 11:00 Lymph % (Auto) 18.9 % 11/18/22 11:00 [place] % (Auto) 4.8 % 11/18/22 11:00 Eos % (Auto) 0.3 % 11/18/22 11:00 Baso % (Auto) 0.5 % 11/18/22 11:00 Neut # (Auto) 4.69 10^3/uL (1.8-7.7) 11/18/22 11:00 Lymph # (Auto) 1.2 10^3/uL (0.8-4.8) 11/18/22 11:00 [place] # (Auto) 0.3 10^3/uL (0.2-0.9) 11/18/22 11:00 Eos # (Auto) 0.0 10^3/uL (0.0-0.8) 11/18/22 11:00 Baso # (Auto) 0.0 10^3/uL (0.0-0.1) 11/18/22 11:00 Nucleated RBC % (auto) 0 % 11/18/22 11:00 Nucleated RBCs # 0.0 /100WBC 11/18/22 11:00 Sodium 139 mmol/L (136-145) 11/18/22 11:00 Potassium 3.9 mmol/L (3.5-5.1) 11/18/22 11:00 Chloride 99 mmol/L (98-107) 11/18/22 11:00 Carbon Dioxide 29 mmol/L (22-29) 11/18/22 11:00 Anion Gap 14.9 (5-19) 11/18/22 11:00 BUN 9 mg/dL (8-23) 11/18/22 11:00 Creatinine 0.6 mg/dL (0.5-0.9) 11/18/22 11:00 GFR Calculation 99.7 mL/min (90-130) 11/18/22 11:00 Glucose 111 mg/dL (65-115) 11/18/22 11:00 Calculated Osmolality 287 mOsm/kg (285-295) 11/18/22 11:00 Calcium 10.4 mg/dL (8.5-10.5) 11/18/22 11:00 Total Bilirubin 0.5 mg/dL (0.15-1.2) 11/18/22 11:00 AST 22 U/L (0-32) 11/18/22 11:00 ALT 19 U/L (0-33) 11/18/22 11:00 Alkaline Phosphatase 90 U/L (35-105) 11/18/22 11:00 Troponin T Baseline 6 ng/L (0-10) 11/18/22 11:00 Troponin T 120 Minute 6.00 ng/L (0-10) 11/18/22 12:57 Delta Troponin T 0 ABS# (0-10) 11/18/22 12:57 Total Protein 7.4 g/dL (6.6-8.7) 11/18/22 11:00 Albumin 4.4 g/dL (3.5-5.2) 11/18/22 11:00 Globulin 3.0 g/dL (1.3-4.6) 11/18/22 11:00 Urine Color Yellow (Yellow) 11/18/22 12:22 Urine Appearance Clear (CLEAR) 11/18/22 12:22 Urine pH 6 (5-7) 11/18/22 12:22 Ur Specific [place] 1.010 (1.005-1.030) 11/18/22 12:22 Urine Protein Neg (Negative) 11/18/22 12:22 Urine Glucose (UA) Norm (Normal) 11/18/22 12:22 Urine Ketones 2+ (Negative) H 11/18/22 12:22 Urine Blood Neg (Negative) 11/18/22 12:22 Urine Nitrate Negative (Negative) 11/18/22 12:22 Urine Bilirubin Neg (Negative) 11/18/22 12:22 Urine Urobilinogen Norm mg/dL (Negative) 11/18/22 12:22 Ur Leukocyte Esterase Negative (Negative) 11/18/22 12:22 Coronavirus 229E (PCR) Not detected (NOT DETECT) 11/18/22 11:20 SARS-CoV-2 (PCR) Not detected (NOT DETECT) 11/18/22 11:20 A&P Assessment and plan (1) Recurrent syncope: Occurring for quite a few years without clear etiology identified. Had another syncopal episode this past Thursday at [employer] and when she was found to not have a pulse and underwent CPR for short period of time by her primary care provider and nursing staff that were onsite. Today she felt recurrent near syncopal symptoms and extreme fatigue/exhaustion to the point that she was unable to function prompting visit to the hospital again today for further work-up and evaluation as indicated. She has some ketonuria noted suggesting some volume depletion. She has chest wall discomfort but had had chest compressions performed a couple of days ago. Cardiac enzymes are unremarkable. She had a negative CTA of the chest a couple of days ago as well as a CT of the head. No current indications of infection. She had COVID in the fall and it sounds like she has had some new symptoms since then but does not really describe recurrent similar episodes since then. She has known anxiety and has had panic attacks off and on including 1 last night. While there may be a component of anxiety contributing that would be a diagnosis of exclusion. (2) General weakness: This is a new component to her symptoms today. Weakness is nonfocal she just does not feel like she can do much of anything. No associated pain beyond that in the chest wall area. (3) Anxiety: Longstanding intermittent problem with occasional panic attacks. Takes Valium as needed for sleep. Does not frequently seek out acute medical care. (4) Dyspepsia: Has been on pepcid once daily for gi symptoms suggesting ulcer (5) Breast discharge: Present since approximately July 2022, at times associated with blood. Has had negative mammogram and breast ultrasound with plan for scheduled MRI of the breast outpatient next Thursday. Has a family history of breast cancer in her mother and so she is understandably worried about what the MRI might find. Plan Observation admission Serial cardiac enzymes and EKGs Telemetry monitoring Check orthostatics IV fluids Check echocardiogram, carotid ultrasound With nonspecific findings on EKG will proceed with stress testing Check CK level Check TSH Check sed rate and CRP Continue home Valium Change Pepcid to twice daily dosing Patient to keep MRI of the breast appointment scheduled in [place] for Thursday Other home medications which are primarily vitamins and such are being held presently Supportive care otherwise Findings, concerns and plans were discussed with patient and her and both were given an opportunity to ask questions. Also reviewed with patient the difficulties in determining etiology of recurrent syncope and types of different studies or considerations to keep in mind. Anticipate discharge home with outpatient follow-up to primary care provider plus or minus specialty clinics along with follow-up for the already scheduled MRI of the breast on Thursday in [place]. Full code Attestations Medical Necessity Statement*: Currently anticipate a stay less than two midnights in this patient presenting with recurrent syncope and a couple of days status post receiving CPR as described. Today she also has significant exhaustion and inability to function as per her description. She has not had any recent cardiac testing or other usual evaluations for syncope beyond ER studies. She had a presyncopal episode today that was concerning for a recurrent event similar to what she experienced on Thursday. Plans are as indicated above. Coding Level of Care Code 24932 Moderate MDM includes risk/complexity, reviewing previous or external records, reviewing test results and ordering lab/other test(s) and Moderate Time for a total of 65 minutes, includes reviewing past or interval history, examining/interviewing patient, placing orders, counseling patient/family/other support and documenting encounter Diagnoses Recurrent syncope R55 General weakness R53.1 Anxiety F41.9 Dyspepsia R10.13 Breast discharge N64.52
--- NOTE | 2022-11-18 16:56 | ECG_ITS ---
[facility] Test Date: 2022-11-19 Pat Name: Aliya Lobato Department: Room: 267 Gender: Female Communication Coordinator: : 1955 Requested By: Daina Segura Order Number: [id number] Spring MD: Cassidy Chambers M.D. Interpretive Statements NAME OF STUDY: LEXISCAN SESTAMIBI STRESS TEST INDICATION: syncope,weakness PROCEDURE: At the baseline, the blood pressure was 152/77 mm Hg with a heart rate of 89 bpm and oxygen saturation of 98%. The electrocardiogram showed sinus tachycardia with RBBB. Baseline diffuse ST depression and T wave inversion. ??? The Lexiscan was infused over a period of 20 seconds. A total of 0.4 milligrams of Lexiscan was infused. The stress phase was continued for a total of 5 minutes. Heart rate at the end of the stress phase was 101 bpm with a blood pressure of 134/64 mm Hg. The EKG at the peak infusion revealed no changes. ??? Sestamibi was injected 20 seconds after the Lexiscan infusion. ??? Blood pressure at the end of the recovery phase was 129/70 mm Hg with a heart rate of 94 beats per minute and oxygen saturation of 98%. ??? CONCLUSION: 1. Non diagnostic EKG with LexiScan infusion due to baseline ST-T wave changes. 2. No LexiScan induced chest pain or cardiac arrhythmia. 3. Normal blood pressure and heart rate response. 4. Sestamibi/sestamibi perfusion scan pending; see separate report. Electronically Signed On 11-21-2022 7:43:35 SATURATION EQUIPMENT OPERATOR by Cassidy Chambers M.D. [email or web address]
--- NOTE | 2022-11-18 17:07 | ECG_ITS ---
[facility] Test Date: 2022-11-18 Pat Name: Aliya Lobato Department: Room: 267 Gender: Female Diesel Engine Tester: : 1955 Requested By: Shahram Delacruz Order Number: [id number] Spring MD: Neil Hilton M.D. Measurements Intervals [place] Rate: 77 P: 38 OR: 119 QRS: 10 QRSD: 145 T: -25 QT: 396 QTc: 449 Interpretive Statements SINUS RHYTHM WITH SHORT OR INTERVAL RIGHT BUNDLE BRANCH BLOCK [120+ ms QRS DURATION, UPRIGHT V1, 40+ ms S IN I/aVL/V4/V5/V6] MODERATE T-WAVE ABNORMALITY, CONSIDER LATERAL ISCHEMIA [-0.1+ mV T-WAVE IN I/aVL/V5/V6] Compared to ECG 11/18/2022 13:31:41 No significant changes Electronically Signed On 11-19-2022 9:31:49 BAGGER AND STOCK HANDLER HELPER by Neil Hilton M.D. [email or web address]
[2022-11-18 17:24] LABS: Creatine Phosphokinase 134 U/L (26-192)
--- NOTE | 2022-11-18 17:32 | USCV_ITS ---
Aliya Lobato Age: 67 Gender: F : 1955 Exam Date: 11/18/2022 18:27 Ordering Phys: Daina Segura MD Technologist: SLIME [place]am Location: [facility] [place] Indication: recurrent syncope COPD weakness, malaise, fatigue. Nonsmoker, no DM. Risk Factors: recurrent syncope COPD weakness, malaise, fatigue. Nonsmoker, no DM. Previous Vascular Surgery: None Right Brachial BP: 127 / 65 Left Brachial BP: / Right Left Velocity (cm/s) Spectral Plaque Velocity (cm/s) Spectral Plaque Syst/Diast Broadening Syst/Diast Broadening 113.60/20.90 None None Prox CCA 114.70/ 24.30 None None 115.80/24.30 None None Mid CCA 105.80/ 22.10 None None 86.00/ 19.80 None Homo Distal CCA 110.30/ 24.30 None Homo 82.90/ 24.80 Min Homo Prox ICA 70.60 / 19.80 Min Homo 88.00/ 30.80 Min None Mid ICA 88.20 / 28.70 Min None 85.40/ 31.60 Min None Distal ICA 101.40/ 30.90 Min None 64.90 Min None ECA 88.20 Min None 0.76 ICA/CCA 0.88 Antegrade Vertebral Antegrade 52.10/ 15.40 cm/s 72.80/ 16.50 cm/s Tri Subclavian Tri 115.8 133.4 0 0 FINDINGS Comparison: none available. No significant elevation of systolic or diastolic velocities. Waveforms are normal. No significant amount of calcified plaque or intimal thickening identified. Antegrade vertebral arteries. CONCLUSIONS Normal carotid doppler ultrasound. Dr. Kira Mckeon DO (Electronically Signed) Final Date: 19 November 2022 07:26 S
[2022-11-18] MEDS: sodium chlor 0.9% + KCl 20 mEq 20 MEQ/1,000 ML BAG 100 MEQ IV (17:58)
[2022-11-18 18:26] LABS: Troponin 5 6HR 7.61 ng/L (0-10)
[2022-11-18 18:34] LABS: Troponin 5 6HR Delta 1.61 ng/L (0-12)
[2022-11-18] MEDS: famotidine 20 mg Tablet PO (19:59)
[2022-11-18] MEDS: acetaminophen 325 mg Tablet 650 MG PO (20:00)
[2022-11-18] MEDS: diazePAM 5 mg Tablet PO (22:36)
[2022-11-19] VITALS: BP 135/71; PULSE 85; RESP 16; TEMP 36.7; O2SAT 96
[2022-11-19] MEDS: sodium chlor 0.9% + KCl 20 mEq 20 MEQ/1,000 ML BAG 100 MEQ IV (03:35)
[2022-11-19 04:00] VITALS: BP 127/77; PULSE 79; RESP 16; TEMP 36.8; O2SAT 97
[2022-11-19 04:35] LABS: Erythrocyte Sedimentation Rate 2 mm/hr (0-15)
[2022-11-19 05:07] LABS: Anion Gap 11.9 (5-19); Blood Urea Nitrogen 7 mg/dL (8-23); Carbon Dioxide 26 mmol/L (22-29); Chloride 104 mmol/L (98-107); Glomerular Filtration Rate 99.7 mL/min (90-130); Glucose 100 mg/dL (65-115); Magnesium 2.1 mg/dL (1.7-2.3); Osmolality Calculated 284 mOsm/kg (285-295); Potassium 3.9 mmol/L (3.5-5.1); Sodium 138 mmol/L (136-145); Thyroid Stimulating Hormone 4.27 uIU/mL (0.27-4.20)
[2022-11-19 05:09] LABS: Procalcitonin 0.02 ng/mL (0-0.5)
[2022-11-19] MEDS: regadenoson 0.4 Mg/5 ml Syringe IVP (07:25)
[2022-11-19 07:44] VITALS: BP 129/70; PULSE 97
[2022-11-19 08:00] VITALS: BP 152/76; PULSE 82; RESP 18; TEMP 36.8; O2SAT 98
--- NOTE | 2022-11-19 09:43 | PM.DCS ---
Discharge Providers Date of Admission: 11/18/22 14:03 Date of Discharge: November 19, 2022 Attending Provider at Admission: Daina Segura MD Attending Provider at Discharge: Chris Floyd MD Primary Care Provider: Haseeb Reed DO Diagnoses at Discharge Discharge Diagnosis (1) Recurrent syncope: Status: Acute (2) General weakness: Status: Acute (3) Anxiety: Status: Acute (4) Dyspepsia: Status: Acute (5) Breast discharge: Status: Acute Reason for Visit Reason for Visit: Dr. Reed sent for heart issues Hospital Course Hospital Course Please see HPI for complete details In short summary, pleasant cooperative 67-year-old female who was admitted for management and evaluation of generalized weakness. Recently she had an event when she was resuscitated by a bystander for 30 seconds, as per the patient CPR was initiated for about 30 seconds and then she woke up, she was completely fine she did not think she required ER evaluation, extensive work-up was unremarkable, this time myocardial perfusion scan was requested which is unremarkable as well carotid Doppler studies normal, CTA rule out PE she is scheduled for MRI for her breast on Thursday because of bloody discharge from her nipples. There is family history of breast cancer. Patient is hypertensive otherwise hemodynamically stable. She will be discharged home on lisinopril and Holter monitor. At this point I am not sure whether her syncopal event was related to loss of pulse, it is very unlikely that she would be function completely normal after cardiac arrest my suspicion is high for bradycardia arrhythmia related recurrent syncopal events hence doing Holter monitoring for a few weeks Slightly abnormal TSH, she will need to repeat her TSH level after a few weeks as well EKG showed nonischemic noninfective changes, short OH interval Incomplete right bundle branch block Physical Exam Narrative: Awake and alert Complaining of chest pain which is reproducible from CPR Awake and alert hemodynamic stable EMR PERRLA Nonfocal neuro exam Discharge Data Studies Completed and Pending Completed Studies During Hospitalization Category Date Time Status Sestamibi Stress Test Request Routine Exams 11/18/22 16:56 Draft XR chest 1V portable [id number] Stat Exams 11/18/22 11:28 Completed NM lucia perf SPECT r/s* [id number] Routine Nuc Med 11/19/22 16:56 Completed CV carotid duplex BI* [id number] Routine Ultrasound 11/18/22 17:32 Completed Pending at discharge Category Date Time Status B12 [Vitamin B12] Routine Lab 11/19/22 09:41 Ordered CV. echo complete* [id number] Stat Ultrasound 11/18/22 14:01 Taken Radiology Impressions Chest X-Ray 11/18/22 11:28 IMPRESSION: 1. No acute cardiopulmonary finding. No change. Laboratory Results WBC 6.2 10^3/uL (4.0-10.0) 11/18/22 11:00 RBC 4.43 10^6/uL (4.1-5.3) 11/18/22 11:00 Hgb 13.8 g/dL (11.5-15.3) 11/18/22 11:00 Hct 41.2 % (37.0-47.0) 11/18/22 11:00 MCV 93.0 fl (81-99) 11/18/22 11:00 MCH 31.2 pg (28.0-34.0) 11/18/22 11:00 MCHC 33.5 g/dL (30.0-36.0) 11/18/22 11:00 RDW 12.1 % (12.1-15.1) 11/18/22 11:00 Plt Count 254 10^3/cmm (130-400) 11/18/22 11:00 MPV 10.1 fL (7.4-10.4) 11/18/22 11:00 Neut % (Auto) 75.2 % 11/18/22 11:00 Lymph % (Auto) 18.9 % 11/18/22 11:00 [place] % (Auto) 4.8 % 11/18/22 11:00 Eos % (Auto) 0.3 % 11/18/22 11:00 Baso % (Auto) 0.5 % 11/18/22 11:00 Neut # (Auto) 4.69 10^3/uL (1.8-7.7) 11/18/22 11:00 Lymph # (Auto) 1.2 10^3/uL (0.8-4.8) 11/18/22 11:00 [place] # (Auto) 0.3 10^3/uL (0.2-0.9) 11/18/22 11:00 Eos # (Auto) 0.0 10^3/uL (0.0-0.8) 11/18/22 11:00 Baso # (Auto) 0.0 10^3/uL (0.0-0.1) 11/18/22 11:00 Nucleated RBC % (auto) 0 % 11/18/22 11:00 Nucleated RBCs # 0.0 /100WBC 11/18/22 11:00 ESR 2 mm/hr (0-15) 11/19/22 04:16 Sodium 138 mmol/L (136-145) 11/19/22 04:16 Potassium 3.9 mmol/L (3.5-5.1) 11/19/22 04:16 Chloride 104 mmol/L (98-107) 11/19/22 04:16 Carbon Dioxide 26 mmol/L (22-29) 11/19/22 04:16 Anion Gap 11.9 (5-19) 11/19/22 04:16 BUN 7 mg/dL (8-23) L 11/19/22 04:16 Creatinine 0.6 mg/dL (0.5-0.9) 11/19/22 04:16 GFR Calculation 99.7 mL/min (90-130) 11/19/22 04:16 Glucose 100 mg/dL (65-115) 11/19/22 04:16 Calculated Osmolality 284 mOsm/kg (285-295) L 11/19/22 04:16 Calcium 9.0 mg/dL (8.5-10.5) 11/19/22 04:16 Magnesium 2.1 mg/dL (1.7-2.3) 11/19/22 04:16 Total Bilirubin 0.5 mg/dL (0.15-1.2) 11/18/22 11:00 AST 22 U/L (0-32) 11/18/22 11:00 ALT 19 U/L (0-33) 11/18/22 11:00 Alkaline Phosphatase 90 U/L (35-105) 11/18/22 11:00 Creatine Kinase 134 U/L (26-192) 11/18/22 11:00 Troponin T Baseline 6 ng/L (0-10) 11/18/22 11:00 Troponin T 120 Minute 6.00 ng/L (0-10) 11/18/22 12:57 Delta Troponin T 0 ABS# (0-10) 11/18/22 12:57 Troponin T Hi Sens 6Hr 7.61 ng/L (0-10) 11/18/22 17:47 Troponin T Hi Sens 6Hr Delta 1.61 ng/L (0-12) 11/18/22 17:47 C-Reactive Protein 3.0 mg/L (0.0-4.9) 11/19/22 04:16 Total Protein 7.4 g/dL (6.6-8.7) 11/18/22 11:00 Albumin 4.4 g/dL (3.5-5.2) 11/18/22 11:00 Globulin 3.0 g/dL (1.3-4.6) 11/18/22 11:00 Procalcitonin 0.02 ng/mL (0-0.5) 11/19/22 04:16 TSH 4.27 uIU/mL (0.27-4.20) H 11/19/22 04:16 Urine Color Yellow (Yellow) 11/18/22 12:22 Urine Appearance Clear (CLEAR) 11/18/22 12:22 Urine pH 6 (5-7) 11/18/22 12:22 Ur Specific [place] 1.010 (1.005-1.030) 11/18/22 12:22 Urine Protein Neg (Negative) 11/18/22 12:22 Urine Glucose (UA) Norm (Normal) 11/18/22 12:22 Urine Ketones 2+ (Negative) H 11/18/22 12:22 Urine Blood Neg (Negative) 11/18/22 12:22 Urine Nitrate Negative (Negative) 11/18/22 12:22 Urine Bilirubin Neg (Negative) 11/18/22 12:22 Urine Urobilinogen Norm mg/dL (Negative) 11/18/22 12:22 Ur Leukocyte Esterase Negative (Negative) 11/18/22 12:22 Coronavirus 229E (PCR) Not detected (NOT DETECT) 11/18/22 11:20 SARS-CoV-2 (PCR) Not detected (NOT DETECT) 11/18/22 11:20 Vitals Last Vital Signs Temp 98.3 F 11/19/22 08:00 Pulse 82 11/19/22 08:00 Resp 18 11/19/22 08:00 BP 152/76 11/19/22 08:00 Pulse Ox 98 11/19/22 08:00 O2 Del Method 11/19/22 08:00 Discharge Plan Discharge Patient Disposition: Home Condition: Stable Prescriptions: New lisinopril 10 mg tablet 10 mg PO DAILY Qty: 30 2RF Continued vitamin B complex Tablet 1 tab PO QAM fluticasone propionate 50 mcg/actuation [place],Suspension 1 spray INTRANASAL DAILY PRN (Reason: Allergy Symptoms) Rx Instructions: administer into each nostril diazepam 5 mg Tablet 5 mg PO BEDTIME PRN (Reason: Sleep) Probiotic 15 billion cell Capsule 1 cap PO QAM digestive enzymes Capsule 1 cap PO DAILY Rx Instructions: administer with food; swallow whole; do not crush/chew/dissolve/break/cut famotidine 20 mg tablet 20 mg PO BEDTIME ascorbic acid (vitamin C) [Vitamin C] 500 mg Tablet 500 mg PO QAM Quercetin 1 tab PO EVERY OTHER DAY zinc acetate 50 mg (zinc) Capsule 50 mg PO DAILY acetaminophen 500 mg Tablet 1,000 mg PO BID Vitamin D3 50 mcg (2,000 unit) Capsule 2,000 unit PO BID Discharge Orders: Discharge Order (Routine); Ordered 11/19/22 Ordered By: Chris Floyd Other Ambulatory Orders: ECG holter monitor 14 Days (Routine) Timeframe: 2 Weeks Facility: [facility] - Location: Radiology Ordered By: Chris Floyd Thyroid Stimulating Hormone (Routine) Timeframe: 2 Weeks Facility: [facility] - Location: Lab - Main Lab Ordered By: Chris Floyd Referrals: Haseeb Reed DO [Primary Care Provider] - 11/25/22 11:00 am Discharge Diet: Cardiac Patient Instructions: Opioid Safety Discharge Attestations Time Spent in Discharge Care*: less than 30 min Quality Metrics Clinical Quality Measures [ No reported AMI, CVA or VTE this stay] Coding Level of Care Code Acute Chg FW DC note Diagnoses Recurrent syncope R55 General weakness R53.1 Anxiety F41.9 Dyspepsia R10.13 Breast discharge N64.52
[2022-11-19 10:41] LABS: Vitamin B12 387 pg/mL (232-1245)
[2022-11-19 11:25] VITALS: BP 134/74; PULSE 85; RESP 20; TEMP 36.9; O2SAT 97
[2022-11-19 14:21] VITALS: BP 134/74; PULSE 85; RESP 20; TEMP 36.9; O2SAT 97
--- NOTE | 2022-11-19 16:56 | NMCV_ITS ---
NM lucia perf SPECT r/s* [id number] Aliya Lobato Age: 67 Gender: F : 1955 Exam Date: 11/19/2022 06:40 Ordering Phys: Daina Segura MD Technologist: PRAKASH Albert Exam Location: [facility] Indications: Syncope, weakness STRESS TEST Please see separate stress test report in [facility] for full findings IMAGE PROTOCOL Rest/Stress 1 Lexiscan Day Radiopharmaceutical Dose (mCi) Administration Site Administered by Rest: Tc-99m 10.6 IV Sestamibi Stress:Tc-99m 32.6 IV PRAKASH Albert Sestamibi Rest: 19-Nov-2022 60 Discovery 630 Stress: 19-Nov-2022 30 Discovery 630 0.4mg Lexiscan. Images obtained in supine and prone position. SPECT RESULTS Technical Quality: Good Raw Data Analysis: Subdiaphragmatic activity Image Corrections: No attenuation or motion correction applied Summed Stress Score: 0 Summed Rest Score: 1 Summed Difference Score: 0 PERFUSION FINDINGS SPECT images demonstrate homogeneous tracer distribution throughout the myocardium. FUNCTIONAL RESULTS (calculated via Gated SPECT) Stress Image LV EF (%): 86 Stress EDV (mL):58 TID: 1.18 Stress ESV (mL):8 FUNCTIONAL FINDINGS: The left ventricle is normal in size. Transient Ischemia Dilatation of 1.18. The left ventricular ejection fraction is normal with a value of 86%. There is hyperdynamic left ventricular wall thickening. IMPRESSIONS 1. Myocardial perfusion imaging is normal. 2. Overall left ventricular systolic function is normal without regional wall motion abnormalities, LVEF=86%. 3. EKG portion of the study will be reported separately. 4. Scan indicates low risk for cardiac events. Cassidy Chambers MD (Electronically Signed) Final Date: 19 November 2022 09:29 S
== END 2022-11-19 13:58 | disposition home or self-care (01) ==
LOC: ER 14:02 → MEDSURG 16:18
PROVIDERS: Family Medicine; Admitting Provider Hospitalist; Emergency Provider Emergency Medicine; PCP Electrodiagnostic Medicine; Visit Provider Internal Medicine
DX: R55 Syncope and collapse (principal); R53.1 Weakness; F41.9 Anxiety disorder, unspecified; R10.13 Epigastric pain; N64.52 Nipple discharge; Z80.3 Family history of malignant neoplasm of breast; I45.10 Unspecified right bundle-branch block; Z86.16 Personal history of COVID-19; J44.9 Chronic obstructive pulmonary disease, unspecified; R79.89 Other specified abnormal findings of blood chemistry
CPT/HCPCS: 36415; 71045; 78452; 80048; 80053; 81003; 82550; 82607; 83735; 84145; 84443; 84484; 85025; 85651; 86140; 87635; 93005; 93017; 93306; 93880; 96365; 96366; 96374; 99285; A9500; G0378; J2785; J3480; J7030

== ENCOUNTER → 2022-12-01 11:25 | Outpatient (BNVA) | payer MEDICARE, SELFPAY | PROVIDERS: PCP Electrodiagnostic Medicine; Visit Provider Internal Medicine | DX: R55 Syncope and collapse (principal); I45.89 Other specified conduction disorders; I49.1 Atrial premature depolarization; I47.1 Supraventricular tachycardia | CPT/HCPCS: 93246 ==

== ENCOUNTER 2022-12-05 13:20 | Outpatient (CLI) | payer MEDICARE, SELFPAY ==
--- NOTE | 2022-12-05 13:35 | US_ITS ---
WS: [id number] ULTRASOUND BREAST LEFT TECHNIQUE: Ultrasound left breast focused area of concern. CLINICAL INFORMATION: LT NIPPLE DISCHARGE COMPARISON: Ultrasound September 25, 2022. Outside MRI report November 24, 2022 FINDINGS: Ultrasound LEFT breast areola. Ultrasound directed to the 6:00 position 2 cm from the nippl e in the area of MRI abnormality. Mild ductal ectasia with a slightly dilated duct in the subareolar region at the 6 clock position. Th is presumably corresponds to the findings on the recent outside MRI. No visualized intraductal mass o r lesion to target for biopsy .Enhancement was seen on the outside MRI in this area. The dilated duct extends over approximately 3 cm. No other suspicious abnormalities. If persistent symptoms, consider breast surgical consultation for focal ductal resection in this area or follow-up with MRI to assess for changes. US/US breast LT limited* [id number] IMPRESSION: See above comments
== END 2022-12-05 13:21 | disposition home or self-care (01) ==
PROVIDERS: PCP Electrodiagnostic Medicine; Visit Provider Electrodiagnostic Medicine
DX: N64.52 Nipple discharge (principal); N60.42 Mammary duct ectasia of left breast
CPT/HCPCS: 76642

== ENCOUNTER → 2022-12-15 08:19 | Outpatient (BNVA) | payer MEDICARE, SELFPAY | PROVIDERS: PCP Electrodiagnostic Medicine; Referring Provider Electrodiagnostic Medicine; Visit Provider Specialist | DX: R55 Syncope and collapse (principal); R56.9 Unspecified convulsions | CPT/HCPCS: 99205 ==

== ENCOUNTER → 2022-12-23 07:58 | Outpatient (BNVA) | payer MEDICARE, SELFPAY | PROVIDERS: PCP Electrodiagnostic Medicine; Referring Provider Specialist; Visit Provider Specialist | DX: R56.9 Unspecified convulsions (principal) | CPT/HCPCS: 95812 ==

== ENCOUNTER → 2023-01-14 12:01 | Outpatient (BNVA) | payer MEDICARE, SELFPAY | PROVIDERS: PCP Electrodiagnostic Medicine; Visit Provider Specialist | DX: R55 Syncope and collapse (principal); I47.1 Supraventricular tachycardia | CPT/HCPCS: 99214 ==

== ENCOUNTER → 2023-03-09 14:30 | Outpatient (BNVA) | payer MEDICARE, SELFPAY | PROVIDERS: PCP Electrodiagnostic Medicine; Visit Provider Internal Medicine | DX: R07.9 Chest pain, unspecified (principal); I45.10 Unspecified right bundle-branch block; R55 Syncope and collapse; I47.1 Supraventricular tachycardia | CPT/HCPCS: 93005; 99213; 99214 ==

== ENCOUNTER 2023-07-14 12:44 | Outpatient (CLI) | payer MEDICARE, SELFPAY ==
--- NOTE | 2023-07-14 12:55 | MM_ITS ---
WS: [id number] BILATERAL 3D TOMOSYNTHESIS DIGITAL DIAGNOSTIC MAMMOGRAPHY WITH CAD CLINICAL INFORMATION: LT BLOODY DISCHARGE HISTORY: LEFT nipple discharge. COMPARISON: 09/25/2022, MRI 11/24/2022, and ultrasound 12/05/2022 TECHNIQUE: Bilateral CC, MLO, and ML views. FINDINGS: The breasts are composed of heterogeneous fibroglandular density, which can limit the detection of sm all underlying mass lesions. Vascular calcification. Incidental punctate calcifications bilaterally. Few dystrophic and lucent centered calcifications. Dense breast tissue subareolar LEFT breast is ayad lar in appearance compared to previous. Ultrasound of this area is pending. Stable ovoid nodule likely intramammary lymph node outer RIGHT breast unchanged. ULTRASOUND BREAST RIGHT TECHNIQUE: Ultrasound right breast focused area of concern. CLINICAL INFORMATION: LT BLOODY DISCHARGE COMPARISON: 12/05/2022 FINDINGS: Ultrasound LEFT breast at the areola. At the 12 o'clock position is a hypoechoic taller than wide les ion not previously seen on the prior studies measuring 8.4 x 8.1 x 7.6 mm. This is indeterminate and recommend further evaluation with ultrasound-guided biopsy. Previously described ductal dilatation at the 6 o'clock position corresponding to the MRI findings st able in appearance compared to the prior ultrasound. No intraductal lesions in this location. IMPRESSION: MM/[place] [id number] BI-RADS: 4-Suspicious Finding-Biopsy Should Be Considered FOLLOW UP: US Guided Biopsy Recommended
== END 2023-07-14 12:45 | disposition home or self-care (01) ==
PROVIDERS: PCP Electrodiagnostic Medicine; Visit Provider Nurse Practitioner Family
DX: N64.52 Nipple discharge (principal); Z12.31 Encounter for screening mammogram for malignant neoplasm of breast; N63.42 Unspecified lump in left breast, subareolar
CPT/HCPCS: 76642; 77062; G0279

== ENCOUNTER 2023-07-22 10:39 | Outpatient (CLI) | payer MEDICARE, SELFPAY ==
--- NOTE | 2023-07-22 10:50 | US_ITS ---
WS: [id number] ULTRASOUND-GUIDED LEFT BREAST BIOPSY CLINICAL INFORMATION: ABNORMAL LEFT MAMMO/ L BLOODY NIPPLE DISCHARGE COMPARISON: 07/14/2023 FINDINGS: The procedure including risks, benefits, and complications were discussed with the patient who agreed to proceed. Using sterile technique patient was prepped and draped in the usual sterile fashion. Aft er 1% lidocaine utilizing real-time ultrasound guidance 5 14-gauge cores were obtained of the LEFT br east lesion at the 12 o'clock position. Patient requested not to have biopsy clip placed. No biopsy c lip was placed. No immediate complications. Pathology demonstrates Left breast, 12:00 position at areola, needle core biopsy: 1. Hyalinized fibroadenoma with associated fat. 2. Negative for atypia and malignancy. IMPRESSION: 1. Uncomplicated ultrasound-guided LEFT breast biopsy. 2. The pathology demonstrates fibroadenoma. Negative for atypia and malignancy. US/[place] [id number] BI-RADS: 2-Benign FOLLOW UP: 1 Year Follow-up Recommend LEFT breast diagnostic mammography and ultrasound 12 o'clock position to confirm stability at the time of annual mammography
== END 2023-07-22 10:40 | disposition home or self-care (01) ==
PROVIDERS: PCP Electrodiagnostic Medicine; Visit Provider Surgery
DX: D24.2 Benign neoplasm of left breast (principal); R92.8 Other abnormal and inconclusive findings on diagnostic imaging of breast; N63.42 Unspecified lump in left breast, subareolar
CPT/HCPCS: 19083; 88305

== ENCOUNTER 2024-02-19 17:53 | Emergency (ER) | payer MEDICARE, SELFPAY ==
[2024-02-19 17:55] VITALS: BP 167/85; PULSE 85; RESP 14; TEMP 36.6; O2SAT 100
[2024-02-19 18:01] VITALS: BP 149/77; PULSE 88; RESP 14; O2SAT 98
--- NOTE | 2024-02-19 18:05 | XRR_ITS ---
PROCEDURE INFORMATION: Exam: XR Chest Exam date and time: 02/19/2024 6:13 PM Age: 68 years old Clinical indication: Other: Palpitations with hypertension TECHNIQUE: Imaging protocol: Radiologic exam of the chest. Views: 1 view. COMPARISON: CR XR chest 1V portable [id number] 11/18/2022 11:42 AM FINDINGS: Lungs: No focal consolidation. Pleural spaces: No evidence of pneumothorax. No evidence of pleural effusion. Heart/Mediastinum: Cardiomediastinal silhouette is within normal limits. Bones/joints: No evidence of acute osseous abnormality. XR/XR chest 1V portable [id number] IMPRESSION: 1. No acute cardiopulmonary abnormality.
[2024-02-19 18:23] LABS: Basophils % 0.5 %; Eosinophils # 0.1 10^3/uL (0.0-0.8); Eosinophils % 1.3 %; Hematocrit 38.8 % (36-47); Lymphocytes # 2.5 10^3/uL (0.8-4.8); Lymphocytes % 40.3 %; Mean Corpuscular HGB Conc 34.3 g/dL (30-55); Mean Corpuscular Hemoglobin 31.7 pg (27-33); Mean Corpuscular Volume 92.6 fl (85-98); Mean Platelet Volume 10.2 fL (7.4-10.4); Monocytes # 0.4 10^3/uL (0.2-0.9); Monocytes % 5.9 %; Neutrophils # 3.23 10^3/uL (1.8-7.7); Neutrophils % 51.8 %; Nucleated Red Blood Cells % 0 %; Platelet Count 251 10^3/cmm (157-399); Red Blood Count 4.19 10^6/uL (3.85-5.65); Red Cell Distribution Width 12.4 % (12.1-15.1); White Blood Count 6.23 10^3/uL (3.29-11.43)
--- NOTE | 2024-02-19 18:28 | ECG_ITS ---
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 Measurements Intervals [place] Rate: 75 P: 47 [place]: 122 QRS: 41 QRSD: 134 T: 0 QT: 407 QTc: 455 Interpretive Statements SINUS RHYTHM RIGHT BUNDLE BRANCH BLOCK [120+ ms QRS DURATION, UPRIGHT V1, 40+ ms S IN I/aVL/V4/V5/V6] Compared to ECG 03/09/2023 14:40:10 No significant changes Electronically Signed On 02-20-2024 19:27:15 CDT by Palomo Monroy M.D. [id number]
[2024-02-19 18:41] LABS: Troponin(5th) Baseline < 6 ng/L (0-10)
--- NOTE | 2024-02-19 18:50 | ED_ITS ---
HPI - General Adult 2 General: Chief complaint: General Medical Stated complaint: elevated bp Time Seen by Provider: 02/19/24 18:05 History of Present Illness: Patient presents to the ER today because she knows her blood pressure was rising and her pulse is rising throughout the day. Patient took a one-time dose of lisinopril and over the next couple hours her pulse and blood pressure still wesley. Patient says she felt fine during this time except she was getting anxious which may be making everything worse. Patient does have a history of SVT but she has not went into it for over a year per patient. Review of Systems 2 General: Reports: 10 or more systems reviewed and unremarkable except in HPI and below PFSH ED 2 PFSH: Medical History Dyspepsia History of concussion 2018 Breast discharge COVID-19 06/2022 Seasonal allergies 1 para 1 General weakness Chest pain Recurrent syncope Anxiety Surgical History History of hysterectomy History of appendectomy History of tonsillectomy Family History Mother Breast cancer Diabetes Thyroid disease Father Renal cancer Brother Dementia Social History Smoking and tobacco/nicotine status: never used tobacco/nicotine Alcohol intake: never Substance/Drug Use: never Household members: spouse Physical Exam 2 Const: COMMON NORMALS: no acute distress, average body habitus, patient oriented x3, no limitations, healthy appearing, alert and well nourished HENMT: COMMON NORMALS: normocephalic, atraumatic, hearing grossly normal bilaterally, external ears normal, Normal external nose present, moist oral mucous membranes and oropharynx normal HEAD & SCALP: normocephalic and atraumatic NOSE: Normal external nose present EXTERNAL EAR: Yes external ears normal Neck/C-Spine: COMMON NORMALS: full ROM, no lymphadenopathy, supple, no meningeal signs, no JVD and Thyroid normal THYROID: Thyroid normal Chest: COMMONS NORMALS: normal inspection of the chest and normal palpation of entire chest wall Resp: COMMON NORMALS: normal respiratory effort, No retractions, No use of accessory muscles and clear to auscultation bilaterally AUSCULTATION: clear to auscultation bilaterally Cardio: COMMON NORMALS: no JVD, regular rate, regular rhythm, S1 normal heart sound present, S2 normal heart sound present, No gallops present (Cardio), No clicks present (Cardio), No murmurs present (Cardio) and No rub (Cardio) R ATE: regular rate RHYTHM: regular rhythm HEART SOUNDS: S1 normal heart sound present and S2 normal heart sound present GI: COMMON NORMALS: Normal to inspection, nondistended, normoactive bowel sounds present, Soft to palpation, non-tender, No hepatosplenomegaly present and no masses PALPATION: Yes Soft to palpation and Yes No hepatosplenomegaly present Neuro: COMMON NORMALS: patient oriented x3 SENSORIUM/ORIENTATION: Yes alert MENINGEAL SIGNS: Yes no meningeal signs Course 2 Vital Signs: Vital signs: Vital Signs Temperature 97.9 F 02/19/24 17:55 Pulse Rate 72 02/19/24 19:25 Respiratory Rate 15 02/19/24 19:25 Blood Pressure 134/76 02/19/24 19:25 Pulse Oximetry 92 02/19/24 19:25 Oxygen Delivery Me thod Room Air 02/19/24 19:25 [facility] - General Adult Medical Decision Making Lab work was obtained as well as chest x-ray and EKG, physical exam was performed. All these were benign findings. Patient's blood pressure and pulse remained stable. Patient will be discharged home. Differential Diagnosis High blood pressure, tachycardia Medical Records I reviewed the patient's medical records. Lab Data I reviewed the patient's lab results. 02/19/24 18:10 02/19/24 18:10 Radiology Impressions Chest X-Ray 02/19/24 18:05 IMPRESSION: 1. No acute cardiopulmonary abnormality. Laboratory Results WBC 6.23 10^3/uL (3.29-11.43) 02/19/24 18:10 RBC 4.19 10^6/uL (3.85-5.65) 02/19/24 18:10 Hgb 13.30 g/dL (11.27-16.99) 02/19/24 18:10 Hct 38.8 % (36-47) 02/19/24 18:10 MCV 92.6 fl (85-98) 02/19/24 18:10 MCH 31.7 pg (27-33) 02/19/24 18:10 MCHC 34.3 g/dL (30-55) 02/19/24 18:10 RDW 12.4 % (12.1-15.1) 02/19/24 18:10 Plt Count 251 10^3/cmm (157-399) 02/19/24 18:10 MPV 10.2 fL (7.4-10.4) 02/19/24 18:10 Neut % (Auto) 51.8 % 02/19/24 18:10 Lymph % (Auto) 40.3 % 02/19/24 18:10 [place] % (Auto) 5.9 % 02/19/24 18:10 Eos % (Auto) 1.3 % 02/19/24 18:10 Baso % (Auto) 0.5 % 02/19/24 18:10 Neut # (Auto) 3.23 10^3/uL (1.8-7.7) 02/19/24 18:10 Lymph # (Auto) 2.5 10^3/uL (0.8-4.8) 02/19/24 18:10 [place] # (Auto) 0.4 10^3/uL (0.2-0.9) 02/19/24 18:10 Eos # (Auto) 0.1 10^3/uL (0.0-0.8) 02/19/24 18:10 Baso # (Auto) 0.0 10^3/uL (0.0-0.1) 02/19/24 18:10 Nucleated RBC % (auto) 0 % 02/19/24 18:10 Nucleated RBCs # 0.0 /100WBC 02/19/24 18:10 Sodium 138 mmol/L (136-145) 02/19/24 18:10 Potassium 4.0 mmol/L (3.5-5.1) 02/19/24 18:10 Chloride 101 mmol/L (98-107) 02/19/24 18:10 Carbon Dioxide 26 mmol/L (22-29) 02/19/24 18:10 Anion Gap 15.0 (5-19) 02/19/24 18:10 BUN 11 mg/dL (8-23) 02/19/24 18:10 Creatinine 0.6 mg/dL (0.5-0.9) 02/19/24 18:10 GFR Calculation 99.4 mL/min (90-130) 02/19/24 18:10 Glucose 109 mg/dL (65-115) 02/19/24 18:10 Calculated Osmolality 286 mOsm/kg (285-295) 02/19/24 18:10 Calcium 9.3 mg/dL (8.5-10.5) 02/19/24 18:10 Magnesium 2.3 mg/dL (1.7-2.3) 02/19/24 18:10 Total Bilirubin 0.3 mg/dL (0.15-1.2) 02/19/24 18:10 AST 22 U/L (0-32) 02/19/24 18:10 ALT 19 U/L (0-33) 02/19/24 18:10 Alkaline Phosphatase 96 U/L (35-105) 02/19/24 18:10 Troponin T Baseline < 6 ng/L (0-10) 02/19/24 18:10 Total Protein 7.0 g/dL (6.6-8.7) 02/19/24 18:10 Albumin 4.6 g/dL (3.5-5.2) 02/19/24 18:10 Globulin 2.4 g/dL (1.3-4.6) 02/19/24 18:10 TSH 2.54 uIU/mL (0.27-4.20) 02/19/24 18:10 All radiology interpretation(s) finalized by discharge Discharge Plan Discharge Patient Disposition: Home Clinical Impression: BP (high blood pressure) Qualifiers: Hypertension type: unspecified Qualified Code(s): I10 - Essential (primary) hypertension Condition: Stable Prescriptions: No Action vit b-12 PO Mickey Herbs Carditone PO GI-Restore PO metoprolol tartrate 25 mg tablet 25 mg PO DAILY PRN (Reason: palpitations) Qty: 30 0RF fluticasone propionate 50 mcg/actuation [place],Suspension 1 spray INTRANASAL DAILY PRN (Reason: Allergy Symptoms) Rx Instructions: administer into each nostril diazepam 5 mg Tablet 5 mg PO BEDTIME PRN (Reason: Sleep) Probiotic 15 billion cell Capsule 1 cap PO QAM digestive enzymes Capsule 1 cap PO DAILY Rx Instructions: administer with food; swallow whole; do not crush/chew/dissolve/break/cut famotidine 20 mg tablet 20 mg PO BEDTIME ascorbic acid (vitamin C) [Vitamin C] 500 mg Tablet 500 mg PO QAM Quercetin 1 tab PO EVERY OTHER DAY zinc acetate 50 mg (zinc) Capsule 50 mg PO DAILY Vitamin D3 50 mcg (2,000 unit) Capsule 2,000 unit PO BID Discharge Orders: Discharge ED (Routine); Ordered 02/19/24 Ordered By: Norberto Bagley Referrals: Haseeb Reed DO [Primary Care Provider] - 1 week Patient Instructions: Hypertension, Normal Exam (ED) Activity Restrictions/Additional Instructions: Your exam in ER did not provide any acute cause for your elevated blood pressure or pulse rate. Please continue to monitor both of these Coding Level of Care Code ED Bin Filler for Augusta Arevalo
[2024-02-19 18:56] LABS: Alanine Aminotransferase 19 U/L (0-33); Albumin Level 4.6 g/dL (3.5-5.2); Alkaline Phosphatase 96 U/L (35-105); Aspartate Amino Transferase 22 U/L (0-32); Blood Urea Nitrogen 11 mg/dL (8-23); Calcium 9.3 mg/dL (8.5-10.5); Carbon Dioxide 26 mmol/L (22-29); Chloride 101 mmol/L (98-107); Creatinine Clr Calc Pharmacy 71.1191; Globulin 2.4 g/dL (1.3-4.6); Glomerular Filtration Rate 99.4 mL/min (90-130); Glucose 109 mg/dL (65-115); Magnesium 2.3 mg/dL (1.7-2.3); Osmolality Calculated 286 mOsm/kg (285-295); Sodium 138 mmol/L (136-145); Thyroid Stimulating Hormone 2.54 uIU/mL (0.27-4.20); Total Bilirubin 0.3 mg/dL (0.15-1.2)
[2024-02-19 19:25] VITALS: BP 134/76; PULSE 72; RESP 15; O2SAT 92
[2024-02-19 19:54] VITALS: BP 134/73; PULSE 82; RESP 20; O2SAT 96
[2024-02-19 20:15] LABS: Troponin 5 2HR Delta 0.00001 ABS# (0-10)
== END 2024-02-19 20:09 | disposition home or self-care (01) ==
PROVIDERS: Emergency Provider Emergency Medicine; PCP Electrodiagnostic Medicine
DX: I10 Essential (primary) hypertension (principal)
CPT/HCPCS: 71045; 80053; 83735; 84443; 84484; 85025; 93005; 99285

== ENCOUNTER → 2024-03-10 14:58 | Outpatient (BNVA) | payer MEDICARE, SELFPAY | PROVIDERS: PCP Electrodiagnostic Medicine; Visit Provider Internal Medicine | DX: R55 Syncope and collapse (principal); I47.10 Supraventricular tachycardia, unspecified | CPT/HCPCS: 99214 ==

== ENCOUNTER → 2024-06-23 13:47 | Outpatient (BNVA) | payer MEDICARE, SELFPAY | PROVIDERS: PCP Electrodiagnostic Medicine; Referring Provider Electrodiagnostic Medicine; Visit Provider Dermatology | DX: L91.8 Other hypertrophic disorders of the skin (principal); L72.0 Epidermal cyst; L57.8 Other skin changes due to chronic exposure to nonionizing radiation; L81.4 Other melanin hyperpigmentation; L82.1 Other seborrheic keratosis; L81.5 Leukoderma, not elsewhere classified; D23.72 Other benign neoplasm of skin of left lower limb, including hip; D23.71 Other benign neoplasm of skin of right lower limb, including hip; L56.5 Disseminated superficial actinic porokeratosis (DSAP) | CPT/HCPCS: 11200; 99203 ==

== ENCOUNTER → 2024-06-29 09:33 | Outpatient (BNVA) | payer MEDICARE, SELFPAY | PROVIDERS: PCP Electrodiagnostic Medicine; Visit Provider Nurse Practitioner Family | DX: I10 Essential (primary) hypertension (principal) | CPT/HCPCS: 99213 ==

== ENCOUNTER → 2024-09-20 13:47 | Outpatient (BNVA) | payer MEDICARE, SELFPAY | PROVIDERS: PCP Electrodiagnostic Medicine; Visit Provider Internal Medicine | DX: I47.10 Supraventricular tachycardia, unspecified (principal) | CPT/HCPCS: 99214 ==

== ENCOUNTER → 2025-03-21 15:02 | Outpatient (BNVA) | payer MEDICARE, SELFPAY | PROVIDERS: PCP Electrodiagnostic Medicine; Visit Provider Internal Medicine | DX: R55 Syncope and collapse (principal); I47.10 Supraventricular tachycardia, unspecified | CPT/HCPCS: 99214 ==

== ENCOUNTER → 2025-06-22 09:45 | Outpatient (BNVA) | payer MEDICARE, SELFPAY | PROVIDERS: PCP Electrodiagnostic Medicine; Visit Provider Nurse Practitioner Family | DX: L72.0 Epidermal cyst (principal); L81.5 Leukoderma, not elsewhere classified; L56.5 Disseminated superficial actinic porokeratosis (DSAP); D23.72 Other benign neoplasm of skin of left lower limb, including hip; L57.8 Other skin changes due to chronic exposure to nonionizing radiation; X32.XXXA Exposure to sunlight, initial encounter; L81.4 Other melanin hyperpigmentation; L82.1 Other seborrheic keratosis; L57.0 Actinic keratosis | CPT/HCPCS: 17000; 99213 ==